=== PATIENT | female | born 1965 | race Caucasian/White ===

== ENCOUNTER 2018-04-22 15:10 | Emergency (ER) | payer MEDICAID ==
--- NOTE | 2018-04-22 15:43 | ER ---
Nurse's Notes [facility] Name: Tammie Schofield Age: 52 yrs Sex: Female : 1965 Arrival Date: 04/22/2018 Time: 15:13 Bed 28 Private MD: Diagnosis: Nasal congestion Presentation: 04/22 15:16 Presenting complaint: SOB and sinus congestion x 2 days. Denies cough/fever. Transition hb of care: patient was not received from another setting of care. Onset of symptoms was April 21, 2018. Risk Assessment: Do you want to hurt yourself or someone else?. Care prior to arrival: None. 15:16 Method Of Arrival: Ambulatory hb 15:16 Acuity: YUDY 3 hb 15:41 Initial Sepsis Screen: Does the patient meet any 2 criteria? No. Patient's initial ca1 sepsis screen is negative. Does the patient have a suspected source of infection? No. Patient's initial sepsis screen is negative. Triage Assessment: 15:43 Respiratory: Onset: The symptoms/episode began/occurred. 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 - Social history:: Smoking status: Patient/guardian denies using tobacco. - Ebola Screening: : No symptoms or risks identified at this time. Screenin:25 Abuse screen: Denies threats or abuse. Denies injuries from another. Nutritional ca1 screening: No deficits noted. Tuberculosis screening: No symptoms or risk factors identified. Fall Risk None identified. Assessment: 15:25 General:. General: Appears in no apparent distress. uncomfortable, Behavior is anxious, ca1 restless. Pain: Complains of pain in nose. Neuro: Level of Consciousness is awake, alert, obeys commands, Oriented to person, place, time, situation. Cardiovascular: Heart tones S1 S2 present Capillary refill < 3 seconds Patient's skin is warm and dry. Rhythm is sinus rhythm. Respiratory: Airway is patent Respiratory effort is even, unlabored, Respiratory pattern is regular, symmetrical, Breath sounds are clear bilaterally. GI: Abdomen is round non-distended, Bowel sounds present X 4 quads. Abd is soft and non tender X 4 quads. : No signs and/or symptoms were reported regarding the genitourinary system. EENT: Nares are clear. Derm: Skin is intact, is healthy with good turgor, Skin is pink, warm \T\ dry. Musculoskeletal: Circulation, motion, and sensation intact. Capillary refill < 3 seconds. 15:40 Reassessment: Patient appears in no apparent distress at this time. Patient is alert, ca1 oriented x 3, equal unlabored respirations, skin warm/dry/pink. Appeared calm. MERARI Cardenas at bedside. Vital Signs: 15:17 BP 138 / 88; Pulse 114; Resp 18; Temp 97.2(TE); Pulse Ox 100% on R/A; Pain 0/10; hb 15:40 BP 135 / 89; Pulse 110; Resp 19; Pulse Ox 100% on R/A; ca1 ED Course: 15:13 Patient arrived in ED. mr 15:17 Triage completed. hb 15:18 Arm band placed on. hb 15:23 Fiona Carreon RN is Primary Nurse. ca1 15:25 Patient has correct armband on for positive identification. Bed in low position. Call ca1 light in reach. Side rails up X 1. Pulse ox on. NIBP on. Warm blanket given. 15:28 Fred Henson PA is PHCP. Bridgette 15:28 Marcellus Arthur MD is Attending Physician. jr8 15:51 No provider procedures requiring assistance completed. Patient did not have IV access ca1 during this emergency room visit. Administered Medications: No medications were administered Outcome: 15:42 Discharge ordered by . jr8 15:51 Discharged to home ambulatory. ca1 15:51 Condition: stable 15:51 Discharge instructions given to patient, Instructed on discharge instructions, follow up and referral plans. medication usage, Demonstrated understanding of instructions, follow-up care, medications, Prescriptions given X 1. 15:51 Patient left the ED. ca1 Signatures: Nilda Perez Fred Henson PA PA jr8 Shannan Spear RN RN Fiona Carreon RN RN ca1 Corrections: (The following items were deleted from the chart) 15:41 15:25 General: Appears in no apparent distress. uncomfortable, Behavior is calm, ca1 cooperative, ca1
--- NOTE | 2018-04-22 15:43 | EDPHYS ---
Physician Documentation [facility] Name: Tammie Schofield Age: 52 yrs Sex: Female : 1965 Arrival Date: 04/22/2018 Time: 15:13 Bed 28 Private MD: ED Physician Marcellus Arthur HPI: 04/22 15:45 This 52 yrs old Female presents to ER via Ambulatory with complaints of Nasal jr8 Congestion . 15:45 The patient presents with Sinus congestion . Onset: The symptoms/episode began/occurred jr8 acutely, today. Modifying factors: The symptoms are alleviated by nothing. the symptoms are aggravated by nothing. Associated signs and symptoms: The patient has no apparent associated signs or symptoms. Severity of symptoms: At their worst the symptoms were mild in the emergency department the symptoms are unchanged. The patient has not experienced similar symptoms in the past. The patient has not recently seen a physician. "patient stated that she put a socket to her nose and then her mouth. Put it down and then another socket dropped onto that. Now she is having nasal congestion". Denies any other problems. . 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 - Social history:: Smoking status: Patient/guardian denies using tobacco. - Ebola Screening: : No symptoms or risks identified at this time. ROS: 15:45 Eyes: Negative for injury, pain, redness, and discharge, Neck: Negative for injury, jr8 pain, and swelling, Cardiovascular: Negative for chest pain, palpitations, and edema, Respiratory: Negative for shortness of breath, cough, wheezing, and pleuritic chest pain, Abdomen/GI: Negative for abdominal pain, nausea, vomiting, diarrhea, and constipation, Back: Negative for injury and pain, MS/Extremity: Negative for injury and deformity, Skin: Negative for injury, rash, and discoloration, Neuro: Negative for headache, weakness, numbness, tingling, and seizure. 15:45 ENT: Positive for sinus congestion, Negative for drainage from ear(s), ear pain, nasal discharge, sinus pain, sore throat, difficulty swallowing, difficulty handling secretions, hoarseness. Exam: 15:45 Eyes: Pupils equal round and reactive to light, extra-ocular motions intact. Lids and jr8 lashes normal. Conjunctiva and sclera are non-icteric and not injected. Cornea within normal limits. Periorbital areas with no swelling, redness, or edema. ENT: Mild bilateral tubinate swelling. Boggy in appearance. Without erythema or discharge. Tympanic membranes are normal and external auditory canals are clear. Oropharynx with no redness, swelling, or masses, exudates, or evidence of obstruction, uvula midline. Mucous membranes moist. Neck: Trachea midline, no thyromegaly or masses palpated, and no cervical lymphadenopathy. Supple, full range of motion without nuchal rigidity, or vertebral point tenderness. No Meningismus. Cardiovascular: Regular rate and rhythm with a normal S1 and S2. No gallops, murmurs, or rubs. Normal PMI, no JVD. No pulse deficits. Respiratory: Lungs have equal breath sounds bilaterally, clear to auscultation and percussion. No rales, rhonchi or wheezes noted. No increased work of breathing, no retractions or nasal flaring. Abdomen/GI: Soft, non-tender, with normal bowel sounds. No distension or tympany. No guarding or rebound. No evidence of tenderness throughout. Back: No spinal tenderness. No costovertebral tenderness. Full range of motion. Skin: Warm, dry with normal turgor. Normal color with no rashes, no lesions, and no evidence of cellulitis. MS/ Extremity: Pulses equal, no cyanosis. Neurovascular intact. Full, normal range of motion. Neuro: Awake and alert, GCS 15, oriented to person, place, time, and situation. Cranial nerves II-XII grossly intact. Motor strength 5/5 in all extremities. Sensory grossly intact. Cerebellar exam normal. Normal gait. 15:45 Psych: Behavior/mood is pleasant, cooperative, Affect is animated, Oriented to person, place, time, Patient has no thoughts/intents to harm self or others. Judgement / Insight is normal. Memory is normal. Delusions/hallucinations are present and described as seeing socket wrenches attacking each other . Vital Signs: 15:17 BP 138 / 88; Pulse 114; Resp 18; Temp 97.2(TE); Pulse Ox 100% on R/A; Pain 0/10; hb 15:40 BP 135 / 89; Pulse 110; Resp 19; Pulse Ox 100% on R/A; ca1 MDM: 15:28 Patient medically screened. jr8 15:42 Data reviewed: vital signs, nurses notes, and as a result, I will discharge patient. jr8 Data interpreted: Pulse oximetry: on room air is 100 %. Interpretation: normal. Counseling: I had a detailed discussion with the patient and/or guardian regarding: the historical points, exam findings, and any diagnostic results supporting the discharge/admit diagnosis, the need for outpatient follow up, a family practitioner, a psychiatrist. 15:45 ED course: Patient was questioned thoroughly about her Schizophrenic history. Patient jr8 pleasant. Alert and and answer all questions appropriately. No SI/HI thoughts. Was just concerned about her nasal congestion. Father is the one who apparently dropped her off and would pick her up. No apparent harm to herself or others. No acute psychosis present. Stable to go home . Administered Medications: No medications were administered Disposition: 04/23 06:35 Co-signature as Attending Physician, Marcellus Arthur MD I agree with the assessment and kdr plan of care. Disposition: 04/22/18 15:42 Discharged to Home. Impression: Nasal congestion. - Condition is Stable. - Discharge Instructions: Nasal Allergies. - Prescriptions for Nasonex 50 mcg/actuation Nasal spray,non- aerosol - spray 2 spray by INTRANASAL route once daily; 1 bottle. - Medication Reconciliation Form, Thank You Letter, Antibiotic Education, Prescription Opioid Use form. - Follow up: Private Physician; When: 2 - 3 days; Reason: Recheck today's complaints, Continuance of care, Re-evaluation by your physician. - Problem is new. - Symptoms have improved. Signatures: Marcellus Arthur MD MD kdr Roszak, Josh, PA PA jr8 Shannan Spear RN RN hb Fiona Carreon RN RN ca1 Corrections: (The following items were deleted from the chart) 04/22 15:51 15:42 04/22/2018 15:42 Discharged to Home. Impression: Nasal congestion. Condition is ca1 Stable. Forms are Medication Reconciliation Form, Thank You Letter, Antibiotic Education, Prescription Opioid Use. Follow up: Private Physician; When: 2 - 3 days; Reason: Recheck today's complaints, Continuance of care, Re-evaluation by your physician. Problem is new. Symptoms have improved. jr8
[2018-04-22 15:59] VITALS: TEMP 97.2; O2SAT 100
[2018-04-22 16:10] VITALS: BP 135/89
== END 2018-04-22 15:51 | disposition home or self-care (01) ==
LOC: ER 15:10
DX: R09.81 Nasal congestion (principal); F20.9 Schizophrenia, unspecified
CPT/HCPCS: 99284

== ENCOUNTER 2018-06-12 18:14 | Emergency (ER) | payer MEDICAID ==
--- NOTE | 2018-06-12 19:33 | EDPHYS ---
Physician Documentation [facility] Name: Tammie Schofield Age: 52 yrs Sex: Female : 1965 Arrival Date: 06/12/2018 Time: 18:15 Bed 24 Private MD: ED Physician Marcellus Arthur HPI: 06/12 19:31 This 52 yrs old Female presents to ER via Ambulatory with complaints of Flu pm1 Symptoms. 19:31 The patient or guardian reports cough, flu symptoms, arthralgias. Onset: The pm1 symptoms/episode began/occurred 3 day(s) ago. Severity of symptoms: in the emergency department the symptoms have improved. Modifying factors: The symptoms are alleviated by cough medications the symptoms are aggravated by nothing. Associated signs and symptoms: Pertinent positives: rhinorrhea, sore throat, fever that has resolved 1 day ago. Diarrhea x 1 that has resolved 1 day ago, Pertinent negatives: chest pain, nausea, vomiting. Historical: - Allergies: 18:18 NKDA; hj - PMHx: 18:18 Schizophrenia; hj - PSHx: 18:18 Adenoids; Tubal ligation; hj - Immunization history:: Adult Immunizations up to date. - Social history:: Smoking status: unknown. - Ebola Screening: : Patient negative for fever greater than or equal to 101.5 degrees Fahrenheit, and additional compatible Ebola Virus Disease symptoms Patient denies exposure to infectious person Patient denies travel to an Ebola-affected area in the 21 days before illness onset. ROS: 19:31 Eyes: Negative for injury, pain, redness, and discharge. pm1 19:31 Constitutional: Positive for body aches, Negative for poor PO intake. 19:31 Neck: Negative for injury, pain, and swelling, Cardiovascular: Negative for chest pain, pm1 palpitations, and edema. 19:31 Abdomen/GI: Negative for abdominal pain, nausea, vomiting, diarrhea, and constipation, Back: Negative for injury and pain, : Negative for injury, bleeding, discharge, and swelling, MS/Extremity: Negative for injury and deformity, Skin: Negative for injury, rash, and discoloration, Neuro: Negative for headache, weakness, numbness, tingling, and seizure. 19:31 ENT: Positive for rhinorrhea, sore throat, Negative for drainage from ear(s), ear pain. 19:31 Respiratory: Positive for cough, Negative for shortness of breath, sputum production, wheezing. Exam: 19:31 Constitutional: This is a well developed, well nourished patient who is awake, alert, pm1 and in no acute distress. Head/Face: Normocephalic, atraumatic. Eyes: Pupils equal round and reactive to light, extra-ocular motions intact. Lids and lashes normal. Conjunctiva and sclera are non-icteric and not injected. Cornea within normal limits. Periorbital areas with no swelling, redness, or edema. ENT: Nares patent. No nasal discharge, no septal abnormalities noted. Tympanic membranes are normal and external auditory canals are clear. Oropharynx with no redness, swelling, or masses, exudates, or evidence of obstruction, uvula midline. Mucous membranes moist. Neck: Trachea midline, no thyromegaly or masses palpated, and no cervical lymphadenopathy. Supple, full range of motion without nuchal rigidity, or vertebral point tenderness. No Meningismus. Chest/axilla: Normal chest wall appearance and motion. Nontender with no deformity. No lesions are appreciated. Cardiovascular: Regular rate and rhythm with a normal S1 and S2. No gallops, murmurs, or rubs. Normal PMI, no JVD. No pulse deficits. Respiratory: Lungs have equal breath sounds bilaterally, clear to auscultation and percussion. No rales, rhonchi or wheezes noted. No increased work of breathing, no retractions or nasal flaring. Abdomen/GI: Soft, non-tender, with normal bowel sounds. No distension or tympany. No guarding or rebound. No evidence of tenderness throughout. Back: No spinal tenderness. No costovertebral tenderness. Full range of motion. Skin: Warm, dry with normal turgor. Normal color with no rashes, no lesions, and no evidence of cellulitis. MS/ Extremity: Pulses equal, no cyanosis. Neurovascular intact. Full, normal range of motion. 19:31 Neuro: Orientation: is normal, Motor: is normal, moves all fours. Vital Signs: 18:18 BP 143 / 103; Pulse 103; Resp 18; Temp 98.0; Pulse Ox 97% on R/A; Weight 113.4 kg; hj Height 5 ft. 4 in. (162.56 cm); 19:44 BP 138 / 98; Pulse 95; Resp 18; Pulse Ox 98% ; rv 18:18 Body Mass Index 42.91 (113.40 kg, 162.56 cm) MDM: 18:28 Patient medically screened. pm1 19:31 Data reviewed: vital signs. Data interpreted: Pulse oximetry: on room air is 97 %. pm1 Interpretation: normal. Counseling: I had a detailed discussion with the patient and/or guardian regarding: the historical points, exam findings, and any diagnostic results supporting the discharge/admit diagnosis, lab results, the need for outpatient follow up, to return to the emergency department if symptoms worsen or persist or if there are any questions or concerns that arise at home. 06/12 18:27 Order name: Flu; Complete Time: 19:32 pm1 06/12 18:27 Order name: Strep; Complete Time: 19:32 pm1 06/12 18:56 Order name: Throat Culture EDMS Administered Medications: No medications were administered Disposition: 06/13 10:27 Co-signature as Attending Physician, Marcellus Arthur MD I agree with the assessment and kdr plan of care. Disposition: 06/12/18 19:32 Discharged to Home. Impression: Acute upper respiratory infection, unspecified. - Condition is Stable. - Discharge Instructions: Upper Respiratory Infection, Adult, Viral Respiratory Infection, Cool Mist Vaporizer. - Prescriptions for Tessalon Perles 100 mg Oral Capsule - take 1 capsule by ORAL route every 8 hours As needed; 15 capsule. - Medication Reconciliation Form, Thank You Letter, Antibiotic Education, Prescription Opioid Use form. - Follow up: Emergency Department; When: As needed; Reason: Worsening of condition. Follow up: Private Physician; When: 2 - 3 days; Reason: Recheck today's complaints, Continuance of care, Re-evaluation by your physician. - Problem is new. - Symptoms have improved. Signatures: Dispatcher [employer] EDMS Marcellus Arthur MD MD [facility] Panchito Martinez RN RN hj Marinas, Patrick, NP [employer]TON BRADDER pm1 Chuck Arroyo RN RN rv Corrections: (The following items were deleted from the chart) 06/12 19:44 19:32 06/12/2018 19:32 Discharged to Home. Impression: Acute upper respiratory rv infection, unspecified. Condition is Stable. Forms are Medication Reconciliation Form, Thank You Letter, Antibiotic Education, Prescription Opioid Use. Follow up: Emergency Department; When: As needed; Reason: Worsening of condition. Follow up: Private Physician; When: 2 - 3 days; Reason: Recheck today's complaints, Continuance of care, Re-evaluation by your physician. Problem is new. Symptoms have improved. pm1
--- NOTE | 2018-06-12 19:33 | ER ---
Nurse's Notes [facility] Name: Tammie Schofield Age: 52 yrs Sex: Female : 1965 Arrival Date: 06/12/2018 Time: 18:15 Bed 24 Private MD: Diagnosis: Acute upper respiratory infection, unspecified Presentation: 06/12 18:16 Presenting complaint: Patient states: i was running fever for 3 days, cough, diarrhea, hj body aches; took cough medicine today;. Transition of care: patient was not received from another setting of care. Onset of symptoms was June 12, 2018. Risk Assessment: Do you want to hurt yourself or someone else? Patient reports no desire to harm self or others. Initial Sepsis Screen: Does the patient meet any 2 criteria? No. Patient's initial sepsis screen is negative. Does the patient have a suspected source of infection? No. Patient's initial sepsis screen is negative. Care prior to arrival: None. 18:16 Method Of Arrival: Ambulatory 18:16 Acuity: YUDY 4 hj Historical: - Allergies: 18:18 NKDA; hj - PMHx: 18:18 Schizophrenia; hj - PSHx: 18:18 Adenoids; Tubal ligation; hj - Immunization history:: Adult Immunizations up to date. - Social history:: Smoking status: unknown. - Ebola Screening: : Patient negative for fever greater than or equal to 101.5 degrees Fahrenheit, and additional compatible Ebola Virus Disease symptoms Patient denies exposure to infectious person Patient denies travel to an Ebola-affected area in the 21 days before illness onset. Screenin:42 Abuse screen: Denies threats or abuse. Denies injuries from another. Nutritional rv screening: No deficits noted. Tuberculosis screening: No symptoms or risk factors identified. Fall Risk None identified. Assessment: 19:00 General: Appears in no apparent distress. comfortable, Behavior is calm, cooperative. rv 19:00 Pain: Denies pain. Neuro: Level of Consciousness is awake, alert, obeys commands, rv Oriented to person, place, time, situation. Cardiovascular: Capillary refill < 3 seconds. Respiratory: Airway is patent. GI: No signs and/or symptoms were reported involving the gastrointestinal system. : No signs and/or symptoms were reported regarding the genitourinary system. EENT: No signs and/or symptoms were reported regarding the EENT system. Derm: Skin is intact. Musculoskeletal: Vital Signs: 18:18 BP 143 / 103; Pulse 103; Resp 18; Temp 98.0; Pulse Ox 97% on R/A; Weight 113.4 kg; hj Height 5 ft. 4 in. (162.56 cm); 19:44 BP 138 / 98; Pulse 95; Resp 18; Pulse Ox 98% ; rv 18:18 Body Mass Index 42.91 (113.40 kg, 162.56 cm) ED Course: 18:15 Patient arrived in ED. mr 18:17 Corby Mosley NP is PHCP. pm1 18:17 Marcellus Arthur MD is Attending Physician. pm1 18:17 Triage completed. hj 18:19 Arm band placed on right wrist. hj 18:21 Chuck Arroyo, AMY is Primary Nurse. rv 19:00 Patient has correct armband on for positive identification. Bed in low position. Call rv light in reach. Side rails up X 1. 19:00 Pulse ox on. NIBP on. rv 19:43 No provider procedures requiring assistance completed. Patient did not have IV access rv during this emergency room visit. Administered Medications: No medications were administered Outcome: 19:32 Discharge ordered by MD. pm1 19:43 Discharged to home ambulatory. rv 19:43 Condition: good 19:43 Discharge instructions given to patient, Instructed on discharge instructions, follow up and referral plans. medication usage, Demonstrated understanding of instructions, follow-up care, medications, Prescriptions given X 1. 19:44 Patient left the ED. rv Signatures: Nilda Perez Panchito Martinez RN RN Corby Mosley, MARK ELECTROFORMER pm1 Chuck Arroyo, AMY RN rv Corrections: (The following items were deleted from the chart) 18:20 18:18 Pulse 103bpm; Resp 18bpm; Pulse Ox 97% RA; Temp 98.0F; 113.4 kg; Height 5 ft. 4 hj in.; BMI: 42.9; hj
[2018-06-12 20:06] VITALS: TEMP 98
[2018-06-12 20:07] VITALS: BP 138/98; O2SAT 98
== END 2018-06-12 19:44 | disposition home or self-care (01) ==
LOC: ER 18:14
DX: J06.9 Acute upper respiratory infection, unspecified (principal)
CPT/HCPCS: 87070; 87081; 87804; 99283

== ENCOUNTER 2018-10-28 13:18 | Emergency (ER) | payer MEDICAID ==
--- NOTE | 2018-10-28 13:59 | ER ---
Nurse's Notes [facility] Name: Tammie Schofield Age: 53 yrs Sex: Female : 1965 Arrival Date: 10/28/2018 Time: 13:22 Bed 13 Private MD: Diagnosis: Periapical abscess without sinus Presentation: 10/28 13:23 Presenting complaint: Patient states: i have a hole in my tooth on my right upper jaw, tw2 it hurts when i swallow and my gums and jaws are swollen. Transition of care: patient was not received from another setting of care. Onset of symptoms was October 28, 2018. Risk Assessment: Do you want to hurt yourself or someone else? Patient reports no desire to harm self or others. Initial Sepsis Screen: Does the patient meet any 2 criteria? HR > 90 bpm. Does the patient have a suspected source of infection? Yes: Other: dental. Care prior to arrival: None. 13:23 Method Of Arrival: Ambulatory tw2 13:23 Acuity: YUDY 3 tw2 Triage Assessment: 13:26 General: Appears uncomfortable, obese, Behavior is calm, cooperative, appropriate for tw2 age. Pain: Complains of pain in left buccal mucosa. EENT: Reports pain in left buccal mucosa when swallowing. 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 - Social history:: Smoking status: . - Ebola Screening: : Patient denies travel to an Ebola-affected area in the 21 days before illness onset. Screenin:15 Abuse screen: Denies threats or abuse. Denies injuries from another. Nutritional mg2 screening: No deficits noted. Tuberculosis screening: No symptoms or risk factors identified. Fall Risk None identified. Assessment: 13:38 Reassessment: pt drinking coffee at this time, pt instructed to not drink coffee at tw2 this time until seen by a physician. 14:12 General: Appears in no apparent distress. comfortable, Behavior is calm, cooperative. mg2 Pain: Complains of pain in tooth Pain does not radiate. Pain currently is 5 out of 10 on a pain scale. Quality of pain is described as aching, Pain began gradually, Is intermittent. Neuro: Level of Consciousness is awake, alert, obeys commands, Oriented to person, place, time, situation. Cardiovascular: Capillary refill < 3 seconds Patient's skin is warm and dry. Respiratory: Airway is patent Respiratory effort is even, unlabored, Respiratory pattern is regular, symmetrical. GI: No signs and/or symptoms were reported involving the gastrointestinal system. : No signs and/or symptoms were reported regarding the genitourinary system. EENT: tooth abscess. Derm: Skin is intact, is healthy with good turgor, Skin is pink, warm \T\ dry. normal. Musculoskeletal: Circulation, motion, and sensation intact. Capillary refill < 3 seconds. Vital Signs: 13:24 BP 160 / 97; Pulse 103; Resp 18; Temp 98.3(O); Pulse Ox 96% ; Weight 114.31 kg (R); tw2 Height 5 ft. 4 in. (162.56 cm); Pain 10/10; 14:35 BP 145 / 78; Pulse 98; Resp 18; Temp 98; Pulse Ox 100% on R/A; mg2 13:24 Body Mass Index 43.26 (114.31 kg, 162.56 cm) tw2 ED Course: 13:22 Patient arrived in ED. mr 13:24 Triage completed. tw2 13:24 Arm band placed on. tw2 13:43 Corby Mosley NP is PHCP. pm1 13:43 Alfred Diana MD is Attending Physician. pm1 13:44 Mark Tidwell RN is Primary Nurse. mg2 14:15 Patient has correct armband on for positive identification. Pulse ox on. NIBP on. Door mg2 closed. 14:15 No provider procedures requiring assistance completed. Patient did not have IV access mg2 during this emergency room visit. Administered Medications: 14:07 Drug: Clindamycin 600 mg Route: IM; Site: right gluteus; mg2 14:34 Follow up: Response: No adverse reaction mg2 14:07 Drug: [place] 10 mg-325 mg 1 tabs Route: PO; mg2 14:34 Follow up: Response: No adverse reaction mg2 14:34 Follow up: Response: RASS: Alert and Calm (0) mg2 Outcome: 13:58 Discharge ordered by . pm1 14:35 Discharged to home ambulatory. mg2 14:35 Condition: stable 14:35 Discharge instructions given to patient, Instructed on discharge instructions, follow up and referral plans. medication usage, Demonstrated understanding of instructions, follow-up care, medications, Prescriptions given X 2. 14:35 Patient left the ED. mg2 Signatures: Nilda Perez mr MosleyCorby, MARK CANDY SEPARATOR ENROBING pm1 Brisa Cortez RN RN tw2 Mark Tidwell RN RN mg2
--- NOTE | 2018-10-28 13:59 | EDPHYS ---
Physician Documentation [facility] Name: Tammie Schofield Age: 53 yrs Sex: Female : 1965 Arrival Date: 10/28/2018 Time: 13:22 Bed 13 Private MD: ED Physician Alfred Diana HPI: 10/28 14:00 This 53 yrs old Female presents to ER via Ambulatory with complaints of pm1 Toothache. 14:00 The patient presents with pain, swelling. The problem is located in the upper left pm1 second molar. Onset: The symptoms/episode began/occurred 2 day(s) ago. Duration: The symptoms are continuous. Modifying factors: the symptoms are aggravated by food. Associated signs and symptoms: Pertinent negatives: dysphagia, fever, inability to eat, pain. Severity of symptoms: in the emergency department the symptoms have improved, swollen gum area popped and drained yesterday. The patient has experienced similar episodes in the past, a few times. The patient has not recently seen a physician. 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 - Social history:: Smoking status: . - Ebola Screening: : Patient denies travel to an Ebola-affected area in the 21 days before illness onset. ROS: 14:00 Constitutional: Negative for fever, chills, and weight loss, Eyes: Negative for injury, pm1 pain, redness, and discharge. 14:00 Neck: Negative for injury, pain, and swelling, Cardiovascular: Negative for chest pain, palpitations, and edema, Respiratory: Negative for shortness of breath, cough, wheezing, and pleuritic chest pain, Abdomen/GI: Negative for abdominal pain, nausea, vomiting, diarrhea, and constipation, Back: Negative for injury and pain, MS/Extremity: Negative for injury and deformity, Skin: Negative for injury, rash, and discoloration, Neuro: Negative for headache, weakness, numbness, tingling, and seizure. 14:00 ENT: Positive for dental pain, Negative for drainage from ear(s), ear pain, difficulty swallowing, difficulty handling secretions, hoarseness. Exam: 14:00 Constitutional: This is a well developed, well nourished patient who is awake, alert, pm1 and in no acute distress. Head/Face: Normocephalic, atraumatic. Eyes: Pupils equal round and reactive to light, extra-ocular motions intact. Lids and lashes normal. Conjunctiva and sclera are non-icteric and not injected. Cornea within normal limits. Periorbital areas with no swelling, redness, or edema. Neck: Trachea midline, no thyromegaly or masses palpated, and no cervical lymphadenopathy. Supple, full range of motion without nuchal rigidity, or vertebral point tenderness. No Meningismus. Chest/axilla: Normal chest wall appearance and motion. Nontender with no deformity. No lesions are appreciated. Cardiovascular: Regular rate and rhythm with a normal S1 and S2. No gallops, murmurs, or rubs. Normal PMI, no JVD. No pulse deficits. Respiratory: Lungs have equal breath sounds bilaterally, clear to auscultation and percussion. No rales, rhonchi or wheezes noted. No increased work of breathing, no retractions or nasal flaring. Abdomen/GI: Soft, non-tender, with normal bowel sounds. No distension or tympany. No guarding or rebound. No evidence of tenderness throughout. Back: No spinal tenderness. No costovertebral tenderness. Full range of motion. 14:00 Skin: Warm, dry with normal turgor. Normal color with no rashes, no lesions, and no evidence of cellulitis. MS/ Extremity: Pulses equal, no cyanosis. Neurovascular intact. Full, normal range of motion. 14:00 ENT: External ear(s): are unremarkable, Ear canal(s): are normal, Nose: is normal, Mouth: Lips: normal, Oral mucosa: normal, Gums: normal with healthy appearance, Tongue: is normal, no trismus. floor of mouth under tongue soft and nontender. 14:00 Neuro: Orientation: is normal, Motor: is normal, moves all fours, Sensation: is normal, no obvious gross deficits. Vital Signs: 13:24 BP 160 / 97; Pulse 103; Resp 18; Temp 98.3(O); Pulse Ox 96% ; Weight 114.31 kg (R); tw2 Height 5 ft. 4 in. (162.56 cm); Pain 10/10; 14:35 BP 145 / 78; Pulse 98; Resp 18; Temp 98; Pulse Ox 100% on R/A; mg2 13:24 Body Mass Index 43.26 (114.31 kg, 162.56 cm) tw2 MDM: 13:43 Patient medically screened. pm1 13:57 Data reviewed: vital signs. Data interpreted: Pulse oximetry: on room air is 96 %. pm1 Interpretation: normal. Counseling: I had a detailed discussion with the patient and/or guardian regarding: the historical points, exam findings, and any diagnostic results supporting the discharge/admit diagnosis, the need for outpatient follow up, for definitive care, a dentist, to return to the emergency department if symptoms worsen or persist or if there are any questions or concerns that arise at home. Administered Medications: 14:07 Drug: Clindamycin 600 mg Route: IM; Site: right gluteus; mg2 14:34 Follow up: Response: No adverse reaction mg2 14:07 Drug: [place] 10 mg-325 mg 1 tabs Route: PO; mg2 14:34 Follow up: Response: No adverse reaction mg2 14:34 Follow up: Response: RASS: Alert and Calm (0) mg2 Disposition: 15:45 Co-signature as Attending Physician, Alfred Diana MD I agree with the assessment and rn plan of care. Disposition: 10/28/18 13:58 Discharged to Home. Impression: Periapical abscess without sinus. - Condition is Stable. - Discharge Instructions: Dental Abscess, Dental Pain. - Prescriptions for Tylenol- Codeine #3 300-30 mg Oral Tablet - take 2 tablets by ORAL route every 6 hours As needed; 20 tablet. Clindamycin HCl 300 mg Oral Capsule - take 1 capsule by ORAL route every 6 hours for 10 days; 40 capsule. - Medication Reconciliation Form, Thank You Letter, Antibiotic Education, Prescription Opioid Use form. - Follow up: Emergency Department; When: As needed; Reason: Worsening of condition. Follow up: Private Physician; When: 2 - 3 days; Reason: Recheck today's complaints, Continuance of care, Re-evaluation by your physician. - Problem is new. - Symptoms have improved. Signatures: Alfred Diana MD MD rn Marinas, Patrick, NP BOX LOADER pm1 Brisa Cortez, RN RN tw2 Mark Tidwell, RN RN mg2 Corrections: (The following items were deleted from the chart) 14:35 13:58 10/28/2018 13:58 Discharged to Home. Impression: Periapical abscess without mg2 sinus. Condition is Stable. Forms are Medication Reconciliation Form, Thank You Letter, Antibiotic Education, Prescription Opioid Use. Follow up: Emergency Department; When: As needed; Reason: Worsening of condition. Follow up: Private Physician; When: 2 - 3 days; Reason: Recheck today's complaints, Continuance of care, Re-evaluation by your physician. Problem is new. Symptoms have improved. pm1
[2018-10-28] MEDS ORDERED: HYDROCODONE/APAP 10/325 TAB ONE (14:04)
[2018-10-28] MEDS ORDERED: CLINDAMYCIN IV 150 MG/ML (4 mL) VIAL ONE (14:04)
[2018-10-28 14:56] VITALS: BP 145/78; TEMP 98; O2SAT 100
== END 2018-10-28 14:35 | disposition home or self-care (01) ==
LOC: ER 13:18
DX: K04.7 Periapical abscess without sinus (principal); F20.9 Schizophrenia, unspecified
CPT/HCPCS: 96372; 99283; S0077

== ENCOUNTER 2019-08-17 21:11 | Emergency (ER) | payer MEDICAID ==
--- NOTE | 2019-08-18 10:31 | ER ---
Nurse's Notes [facility] Name: Tammie Schofield Age: 53 yrs Sex: Female : 1965 Arrival Date: 08/17/2019 Time: 21:14 Bed Waiting Private MD: Diagnosis: Presentation: 08/16 21:20 Chief complaint: Patient states: There was a sore on my L leg started about a week ago. ca1 Right now it looks infected, red, swollen and having some drainage. Coronavirus screen: Proceed with normal triage. Patient denies a cough. Patient denies shortness of breath or difficulty breathing. Patient denies measured and/or subjective temperature greater than 100.4F prior to today's visit. Patient denies travel on a cruise ship or to a country the [facility] currently lists as an affected area. Patient denies contact with known and/or suspected case of COVID-19. Ebola Screen: Patient negative for fever greater than or equal to 101.5 degrees Fahrenheit, and additional compatible Ebola Virus Disease symptoms Patient denies exposure to infectious person. Patient denies travel to an Ebola-affected area in the 21 days before illness onset. No symptoms or risks identified at this time. Initial Sepsis Screen: Does the patient meet any 2 criteria? No. Patient's initial sepsis screen is negative. Does the patient have a suspected source of infection? No. Patient's initial sepsis screen is negative. Risk Assessment: Do you want to hurt yourself or someone else? Patient reports no desire to harm self or others. Onset of symptoms was August 17, 2019. 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 - Social history:: Smoking status: Patient reports use of chewing tobacco. Vital Signs: 21:20 BP 144 / 102; Pulse 104; Resp 17 S; Temp 97.2(TE); Pulse Ox 99% on R/A; Weight 114.31 ca1 kg (R); Height 5 ft. 4 in. (162.56 cm) (R); Pain 09/02; 21:20 Body Mass Index 43.26 (114.31 kg, 162.56 cm) ca1 ED Course: 21:14 Patient arrived in ED. ag3 21: Triage completed. ca1 21:25 Arm band placed on right wrist. ca1 23:51 Matthew Bruno MD is Attending Physician. flor 08/17 00:11 Patient's name was called from ER lobby. Unable to locate patient. Will disposition as ea left without being seen by a provider. Administered Medications: No medications were administered Outcome: 00:13 Patient left the ED. ea Signatures: Matthew Bruno MD MD cha Antunez, Elena, AMY RN Nicolette Durand 3 Fiona Carreon RN RN ca1 Corrections: (The following items were deleted from the chart) 08/16 21:25 21:20 Acuity: YUDY 4 ca1 ca1
[2019-08-18 13:50] VITALS: BP 144/102; TEMP 97.2; O2SAT 99
== END 2019-08-18 00:13 | disposition left against medical advice (07) ==
LOC: ER 21:11
DX: Z53.21 Procedure and treatment not carried out due to patient leaving prior to being seen by health care provider (principal)
CPT/HCPCS: 99281

== ENCOUNTER 2021-10-16 19:50 | Emergency (ER) | payer OTHER ==
--- OUTSIDE RECORDS SUMMARY | 2021-10-16 19:53 | XMS REPORT | Continuity of Care Document ---
:1965 Author Organization [facility] t Address [address] [place] [address] Care Team Providers Name Role Phone Unavailable Unavailable Unavailable Problems This patient has no known problems. Allergies, Adverse Reactions, Alerts This patient has no known allergies or adverse reactions. Medications This patient has no known medications. Procedures This patient has no known procedures. Results Test Description Test Time Test Comments Results Result Comments Source C-REACTIVE PROTEIN 2021-04-11 06:24:06 Test Item Value Reference Range Interpretation Comme nts C-REACTIVE PROTEIN (test code = 0.4 MG/DL <0.5 UNLESS OTHERWISE INDICATED, ALL 3513) TESTING PERFORM ED ATCLINICAL PATHOLOGY [employer]. [address] [place] [id number] SONOSCOPE OPERATOR: MASHA OLSEN M.D. CLIA NUMBER [id number] CAP ACCREDITATION N O. [id number] SEDIMENTATION [id number] 06:06:25 Test Item Value Reference Range Interpretation Comments SEDIMENTATION RATE (test code = 17 MM/HOUR 0-20 1017) CBC W/AUTO DIFF WITH [id number] 04:52:45 Test Item Value Reference Range Interpretation Comments WBC (test code = 6.7 K/UL 3.5-11.0 1001) RBC (test code = 4.67 M/UL 3.80-5.40 1002) HEMOGLOBIN (test code 14.3 G/DL 11.5-15.5 = 1003) HEMATOCRIT (test code 42.2 % 34.0-45.0 = 1004) MCV (test code = 90.4 fL 80.0-99.0 1005) MCH (test code = 30.6 PG 25.0-33.0 1006) MCHC (test code = 33.9 G/DL 31.0-36.0 1007) RDW (test code = 12.6 % 11.5-15.0 1038) NEUTROPHILS (test 45.2 % code = 1008) LYMPHOCYTES (test 46.6 % code = 1010) MONOCYTES (test code 6.0 % = 1011) EOSINOPHILS (test 1.0 % code = 1012) BASOPHILS (test code 0.9 % = 1013) IMMATURE GRANULOCYTES 0.3 % (test code = 1036) NUCLEATED RBCS (test 0.0 /100 WBC'S See_Comment [Aut omated code = 1065) message] The sy stem which generated this result transmitted reference range : 0.0. The refere nce range was not u sed to interpret th is result as normal/abnormal . PLATELET COUNT (test 258 K/UL 130-400 code = 1015) ABSOLUTE NEUTROPHILS 3.03 K/UL 1.50-7.50 (test code = 1066) ABSOLUTE LYMPHOCYTES 3.12 K/UL 1.00-4.00 (test code = 1067) ABSOLUTE MONOCYTES 0.40 K/UL 0.20-1.00 (test code = 1068) ABSOLUTE EOSINOPHILS 0.07 K/UL 0.00-0.50 (test code = 1040) ABSOLUTE BASOPHILS 0.06 K/UL 0.00-0.20 (test code = 1069) ABS IMMATURE 0.02 K/UL 0.00-0.10 GRANULOCYTES (test code = 1020) ABS NUCLEATED RBCS 0.00 K/UL 0.00-0.11 (test code = 34718)
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
--- NOTE | 2021-10-16 20:45 | EDPHYS ---
Physician Documentation [facility] Name: Tammie Schofield Age: 56 yrs Sex: Female : 1965 Arrival Date: 10/16/2021 Time: 19:52 Bed 17 Private MD: CARLOS Physician Matthew Bruno HPI: 10/16 21:01 This 56 yrs old Female presents to ER via Ambulatory with complaints of Sore Throat, snw Cough, Hurts to breathe. 21:01 The patient presents with sore throat. The patient describes throat pain as scratchy. snw Severity of symptoms: At their worst the symptoms were moderate. Associated signs and symptoms: Pertinent positives: cough, flu-like symptoms, Sore throat. The patient has not experienced similar symptoms in the past. It is unknown whether or not the patient has recently seen a physician. 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 - Social history:: Smoking status: Patient reports use of chewing tobacco. ROS: 20:50 Eyes: Negative for injury, pain, redness, and discharge. snw 20:50 Neck: Negative for injury, pain, and swelling, Cardiovascular: Negative for chest pain, palpitations, and edema, Respiratory: Negative for shortness of breath and pleuritic chest pain, + cough, wheezing Abdomen/GI: Negative for abdominal pain, nausea, vomiting, diarrhea, and constipation, Back: Negative for injury and pain, : Negative for injury, bleeding, discharge, and swelling, MS/Extremity: Negative for injury and deformity, Skin: Negative for injury, rash, and discoloration, Neuro: Negative for headache, weakness, numbness, tingling, and seizure, Psych: Negative for depression, anxiety, suicide ideation, homicidal ideation, and hallucinations. 20:50 Constitutional: Positive for body aches, malaise. 20:50 ENT: Positive for nasal discharge, sinus congestion, sore throat. Exam: 20:48 Head/Face: Normocephalic, atraumatic. Eyes: Pupils equal round and reactive to light, snw extra-ocular motions intact. Lids and lashes normal. Conjunctiva and sclera are non-icteric and not injected. Cornea within normal limits. Periorbital areas with no swelling, redness, or edema. ENT: Nares patent. No nasal discharge, no septal abnormalities noted. Tympanic membranes are normal and external auditory canals are clear. Oropharynx with no redness, swelling, or masses, exudates, or evidence of obstruction, uvula midline. Mucous membranes moist. Neck: Trachea midline, no thyromegaly or masses palpated, and no cervical lymphadenopathy. Supple, full range of motion without nuchal rigidity, or vertebral point tenderness. No Meningismus. Chest/axilla: Normal chest wall appearance and motion. Nontender with no deformity. No lesions are appreciated. 20:48 Abdomen/GI: Soft, non-tender, with normal bowel sounds. No distension or tympany. No guarding or rebound. No evidence of tenderness throughout. Back: No spinal tenderness. No costovertebral tenderness. Full range of motion. Skin: Warm, dry with normal turgor. Normal color with no rashes, no lesions, and no evidence of cellulitis. MS/ Extremity: Pulses equal, no cyanosis. Neurovascular intact. Full, normal range of motion. Neuro: Awake and alert, GCS 15, oriented to person, place, time, and situation. Cranial nerves II-XII grossly intact. Motor strength 5/5 in all extremities. Sensory grossly intact. Cerebellar exam normal. Normal gait. Psych: Awake, alert, with orientation to person, place and time. Behavior, mood, and affect are within normal limits. 20:48 Constitutional: The patient appears alert, awake, obese. 20:48 Cardiovascular: Rate: tachycardic, Rhythm: regular, Pulses: no pulse deficits are appreciated. 20:48 Respiratory: the patient does not display signs of respiratory distress, Respirations: normal, Breath sounds: wheezing: expiratory is heard diffusely. Vital Signs: 20:10 BP 142 / 92; Pulse 113; Resp 16; Temp 97.7; Pulse Ox 95% on R/A; Weight 136.08 kg; 5 Height 5 ft. 4 in. (162.56 cm); Pain 4/10; 20:59 BP 137 / 84; Pulse 92; Resp 17 S; Pulse Ox 97% on R/A; em6 20:10 Body Mass Index 51.49 (136.08 kg, 162.56 cm) [facility] MDM: 20:38 Patient medically screened. snw 20:49 Data reviewed: vital signs, nurses notes. Data interpreted: Pulse oximetry: on room air snw is 95 %. Interpretation: acceptable. Counseling: I had a detailed discussion with the patient and/or guardian regarding: the historical points, exam findings, and any diagnostic results supporting the discharge/admit diagnosis, the presence of at least one elevated blood pressure reading (>120/80) during this emergency department visit, lab results, the need for outpatient follow up, to return to the emergency department if symptoms worsen or persist or if there are any questions or concerns that arise at home. Special discussion: Based on the history and exam findings, there is no indication for further emergent testing or inpatient evaluation. I discussed with the patient/guardian the need to see the primary care provider for further evaluation of the symptoms. 10/16 20:15 Order name: COVID-19 SARS RT PCR (Document "Date of Onset" if Symptomatic) [facility] 10/16 20:15 Order name: Flu; Complete Time: 20:58 [facility] 10/16 20:15 Order name: Strep; Complete Time: 20:43 [facility] 10/16 20:43 Order name: Throat Culture EDMS Administered Medications: 20:58 Drug: Decadron - Dexamethasone 10 mg Route: IVP; Site: Other; em6 20:59 Follow up: Response: No adverse reaction em6 20:59 Drug: Bicillin L-A (penicillin G Benzathine) 1.2 million units Route: IM; Site: right em6 gluteus; 20:59 Follow up: Response: No adverse reaction em6 Disposition Summary: 10/16/21 20:45 Discharge Ordered Location: Home snw Condition: Stable snw Diagnosis - Acute suppurative otitis media snw - Acute bronchitis, unspecified snw Followup: snw - With: Emergency Department - When: As needed - Reason: Worsening of condition Followup: snw - With: Private Physician - When: 2 - 3 days - Reason: Recheck today's complaints, Continuance of care, Re-evaluation by your physician Discharge Instructions: - Discharge Summary Sheet snw - Acute Bronchitis, Adult snw - Hypertension, Adult snw - Rehydration, Adult snw Forms: - Medication Reconciliation Form snw - Thank You Letter snw - Antibiotic Education snw - Prescription Opioid Use snw Prescriptions: - albuterol sulfate 90 mcg/actuation Inhalation HFA aerosol inhaler - inhale 2 puff by INHALATION route every 4-6 hours; 1 Inhaler; Refills: 0, snw Product Selection Permitted - Zyrtec 10 mg Oral Tablet - take 1 tablet by ORAL route once daily As needed; 20 tablet; Refills: 0, snw Product Selection Permitted - Pepcid 20 mg Oral Tablet - take 1 tablet by ORAL route once daily; 20 tablet; Refills: 0, Product snw Selection Permitted Signatures: Dispatcher [employer] EDKenzie Rowell FNP-C WAREHOUSE COORDINATOR-Surjitw Lucina Hall RN RN jh5 Olimpia Duran RN RN em6
[2021-10-16] MEDS ORDERED: dexAMETHasone 10 MG/ML VIAL ONE (20:56)
[2021-10-16] MEDS ORDERED: PEN G BENZ LA 1.2MU/2ML SYRINGE IM ONE (20:57)
[2021-10-16 23:38] VITALS: TEMP 97.7
[2021-10-16 23:41] VITALS: BP 137/84; O2SAT 97
== END 2021-10-16 21:02 | disposition home or self-care (01) ==
LOC: ER 19:50
DX: J20.9 Acute bronchitis, unspecified (principal); H66.009 Acute suppurative otitis media without spontaneous rupture of ear drum, unspecified ear; F17.220 Nicotine dependence, chewing tobacco, uncomplicated; Z20.822 Contact with and (suspected) exposure to COVID-19
CPT/HCPCS: 87070; 87081; 87804 ×2; U0003; J0561; J1100

== ENCOUNTER 2024-06-01 14:47 | Emergency (ER) | payer OTHER ==
--- OUTSIDE RECORDS SUMMARY | 2024-06-01 14:54 | XMS REPORT | Continuity of Care Document ---
Author Name Unknown Address [address] [facility] [address] [place] [address] [facility] [address] [facility] [address] [place] [address] Care Team Providers Care Construction Skills Teacher Name Role Phone Mj FAGAN, [facility] Primary Care Physician [phone] Medications Ordered Medication Name Filled Medication Name Start Date Stop Date Current Medication? Ordering Clinician Indication Dosage Frequency Signature (SIG) Comments Components Source fluticasone propionate 110 mcg/actuati on HFA aerosol inhaler 2023-02 00:00: 00 Yes 2mcg/ac tuation Oseas Gonsalves Ulises ProAir RespiClick 90 mcg/actuati on breath activated 2023-02 00:00: 00 Yes 12mcg/a ctuatio n Oseas Montgomery nystatin 100,000 unit/gram topical ointment 07-21 00:00: 00 Yes 1unit/g pita Oseas Montgomery fluticasone propionate 110 mcg/actuati on HFA aerosol inhaler 07-15 00:00: 00 Yes 2mcg/ac tuation Oseas Montgomery ProAir RespiClick 90 mcg/actuati on breath activated 07-15 00:00: 00 Yes 12mcg/a ctuatio n Oseas Montgomery RISPERDAL 50MG/2ML VIA 2022-02 2- 00:00: 00 Yes [id number] Oseas Montgomery RISPERDAL 50MG/2ML VIA 2022-02 1- 00:00: 00 Yes Oseas Montgomery BENZTROPINE 1MG 2022-02 1-07 00:00: 00 Yes Oseas Montgomery RISPERIDONE 3MG 2022-0 8-19 00:00: 00 Yes 3000 Oseas Montgomery RISPERIDONE 3MG 2023-0 7-24 00:00: 00 Yes 3000 Oseas Montgomery TAKE THREE TABLETS BY MOUTH DAILY WITH FOOD. 7- 00:00: 00 07-08 00:00 :00 No [id number] Oseas Montgomery RISPERIDONE 3MG 6-27 00:00: 00 Yes Oseas Montgomery MAVYRET 100-40MG 6-12 00:00: 00 Yes Oseas Montgomery CEPHALEXIN 500MG - 00:00: 00 Yes Oseas Montgomery TAKE ONE TABLET EVERY 6 HOURS FOR 14 DAYS - 00:00: 00 07-08 00:00 :00 No 500 Oseas Montgomery APPLY 2-3 TIMES DAILY TO AFFECTED AREA(S). 06-26 00:00: 00 07-08 00:00 :00 No [id number] Oseas Montgomery MAVYRET 100-40MG 06-24 00:00: 00 Yes Oseas [facility] TAKE 3 TABLETS DAILY WITH FOOD. 06-23 00:00: 00 07-08 00:00 :00 No [id number] Ose[facility] Montgomery TAKE 1 TABLET BY MOUTH EVERYDAY AT BEDTIME 06-13 00:00: 00 Yes Ose[facility] TAKE 1 TABLET AT BEDTIME FOR 1 WEEK. INCREASE TO 2 TABLETS AT BEDTIME FOR 1 WEEK. INCREASE TO 3 TABLETS AT BEDTIME UNTIL GONE. 05-22 00:00: 00 07-08 00:00 :00 No 100 Ose[facility] Montgomery PALIPERIDON E ER 9MG 3-09 00:00: 00 Yes Oseas Montgomery INVEGA SUST 156MG/ML INJ 3-08 00:00: 00 Yes [id number] Ose[facility] Montgomery TAKE 1 TABLET BY MOUTH TWICE A DAY - 00:00: 00 Yes [facility]se[facility] TAKE 1 TABLET TWICE DAILY. - 00:00: 00 07-08 00:00 :00 No [id number] Oseas Montgomery INVEGA SUST 234/1.5 INJ 1-25 00:00: 00 Yes Oseas Montgomery INVEGA SUST 156MG/ML INJ 2022-1 1-11 00:00: 00 Yes Oseas Montgomery METFORMIN ER 500MG GP 2021-0 9-29 00:00: 00 Yes [id number] Oseas Montgomery TAKE 1 TABLET TWICE A DAY 2021-0 9- 00:00: 00 Yes Ose[facility] RISPERDAL CONSTA 50MG/2ML VIA 0 9- 00:00: 00 Yes Ose[facility] RISPERDAL CONSTA 50MG/2ML VIA 0 9- 00:00: 00 No BENZTROPINE MESYLATE 1MG 0 9- 00:00: 00 Yes 1000 Ose[facility] Montgomery ESCITALOPRA M OXALATE 10MG 0 9- 00:00: 00 Yes [id number] Oseas Montgomery TAKE 1 TABLET BY MOUTH EVERY DAY IN THE MORNING 0 9- 00:00: 00 Yes Oseas Montgomery TAKE 1 TABLET BY MOUTH EVERYDAY AT BEDTIME 2021-0 9- 00:00: 00 Yes Oseas Montgomery FAMOTIDINE 20MG 2021-0 8-24 00:00: 00 Yes [id number] Oseas Montgomery CETIRIZINE HYDROCHLORI DE 10MG 0 8-24 00:00: 00 Yes [id number] Oseas Montgomery TAKE 1 TABLET BY MOUTH ONCE DAILY NEEDED FOR ALLERGY CONTROL 0 8-23 00:00: 00 Yes Ose[facility] Montgomery INVEGA SUSTENNA 156MG/ML INJ 2021-0 6-30 00:00: 00 Yes [id number] Oseas Montgomery INVEGA SUSTENNA 156MG/ML INJ 0 6-02 00:00: 00 Yes [id number] Oseas Montgomery Dose Unknown 0 2-14 00:00: 00 Yes Ose[facility] Montgomery Dose Unknown 0 2-14 00:00: 00 No Dose Unknown 2019-02 0-02 00:00: 00 Yes Ose[facility] Dose Unknown 2019-02 0-02 00:00: 00 Yes Oseas Montgomery Dose Unknown 2019-02 0-02 00:00: 00 No Dose Unknown 2019-02 0-02 00:00: 00 No Dose Unknown 2019-0 4-22 00:00: 00 Yes Ose[facility] Dose Unknown 0 4-22 00:00: 00 No Dose Unknown 0 4-20 00:00: 00 Yes Ose[facility] Dose Unknown 06-13 00:00: 00 No Dose Unknown 2018-02 00:00: 00 Yes [facility]se[facility] Dose Unknown 2018-02 00:00: 00 Yes Ose[facility] Dose Unknown 2018-02 00:00: 00 No Dose Unknown 2018-02 00:00: 00 No Flovent HFA 110 mcg/actuati on aerosol inhaler 06-19 00:00: 00 Yes 2mcg/ac tuation Oseas Montgomery albuterol sulfate HFA 90 mcg/actuati on aerosol inhaler 06-19 00:00: 00 Yes 12mcg/a ctuatio n Ose[facility] Montgomery Dose Unknown 06-19 00:00: 00 Yes Ose[facility] Flovent HFA 110 mcg/actuati on aerosol inhaler 06-19 00:00: 00 No 2mcg/ac tuation albuterol sulfate HFA 90 mcg/actuati on aerosol inhaler 06-19 00:00: 00 No 12mcg/a ctuatio n Dose Unknown 06-19 00:00: 00 No Flovent HFA 110 mcg/actuati on aerosol inhaler 03-09 00:00: 00 Yes 2mcg/ac tuation Osesa Montgomery albuterol sulfate HFA 90 mcg/actuati on aerosol inhaler 03-09 00:00: 00 Yes 12mcg/a ctuatio n Oseas Montgomery Flovent HFA 110 mcg/actuati on aerosol inhaler 03-09 00:00: 00 No 2mcg/ac tuation albuterol sulfate HFA 90 mcg/actuati on aerosol inhaler 03-09 00:00: 00 No 12mcg/a ctuatio n metronidazo le 500 mg tablet 11-19 00:00: 00 Yes 1mg Oseas Montgomery metronidazo le 500 mg tablet 11-19 00:00: 00 No 1mg clotrimazol e 1 % topical cream 11-17 00:00: 00 Yes 1% Oseas Montgomery clotrimazol e 1 % topical cream 11-17 00:00: 00 No 1% ibuprofen 600 mg tablet 10-30 00:00: 00 Yes 1mg Oseas Montgomery ibuprofen 600 mg tablet 10-30 00:00: 00 No 1mg metronidazo le 500 mg tablet 10-27 00:00: 00 Yes 1mg Oseas Montgomery metronidazo le 500 mg tablet 10-27 00:00: 00 No 1mg Flovent HFA 110 mcg/actuati on aerosol inhaler 10-20 00:00: 00 No 2mcg/ac tuation albuterol sulfate HFA 90 mcg/actuati on aerosol inhaler 10-20 00:00: 00 No 12mcg/a ctuatio n Flovent HFA 110 mcg/actuati on aerosol inhaler 10-20 00:00: 00 Yes 2mcg/ac tuation Oseas Montgomery albuterol sulfate HFA 90 mcg/actuati on aerosol inhaler 10-20 00:00: 00 Yes 12mcg/a ctuatio n Oseas Montgomery clotrimazol e 1 % topical cream 2016-02 00:00: 00 No 1% metronidazo le 500 mg tablet 2016-02 00:00: 00 No 1mg clotrimazol e 1 % topical cream 2016-02 00:00: 00 Yes 1% Oseas Montgomery metronidazo le 500 mg tablet 2016-02 00:00: 00 Yes 1mg Oseas Montgomery metronidazo le 500 mg tablet 08-22 00:00: 00 No 1mg metronidazo le 500 mg tablet 08-22 00:00: 00 Yes 1mg Oseas Montgomery cephalexin 500 mg tablet 08-01 00:00: 00 No 1mg clotrimazol e 1 % topical cream 08-01 00:00: 00 No 1% loratadine 10 mg tablet 08-01 00:00: 00 No 1mg clotrimazol e 1 % topical cream 08-01 00:00: 00 Yes 1% Oseas [facility] loratadine 10 mg tablet 08-01 00:00: 00 Yes 1mg Oseas Montgomery cephalexin 500 mg tablet 08-01 00:00: 00 Yes 1mg Oseas Montgomery Risperdal Consta 50 mg/2 mL intramuscul ar syringe 06-10 00:00: 00 No 1mg/2 mL benztropine 1 mg tablet 06-10 00:00: 00 No 1mg Risperdal Consta 50 mg/2 mL intramuscul ar syringe 06-10 00:00: 00 Yes 1mg/2 mL Oseas Montgomery benztropine 1 mg tablet 06-10 00:00: 00 Yes 1mg Oseas Montgomery Keflex 500 mg capsule 09-12 00:00: 00 No 1mg Keflex 500 mg capsule 09-12 00:00: 00 Yes 1mg Oseas Montgomery benztropine 1 mg tablet 08-18 00:00: 00 No mg benztropine 1 mg tablet 08-18 00:00: 00 Yes mg Oseas Montgomery risperidone 2 mg tablet 07-22 00:00: 00 No mg risperidone 2 mg tablet 07-22 00:00: 00 Yes mg Oseas Montgomery Immunizations Ordered Immunization Name Filled Immunization Name Date Status Comments Source Influenza, seasonal, inj 2018-12-24 00:00:00 Completed Influenza, seasonal, inj Influenza, seasonal, inj 2018-12-24 00:00:00 Completed Oseas Montgomery Vital Signs Vital Name Observation Time Observation Value Comments S ourrichard BP Systolic 2024-02-24 15:45:00 176 mm[Hg] Step hen Major Montgomery BP Diastolic 2024-02-24 15:45:00 79 mm[Hg] Lino phen Major Montgomery Weight Measured 2024-02-24 15:45:00 296.00 pounds Oseas Montgomery Height Measured 2024-02-24 15:45:00 62.50 inches Oseas Montgomery Body Temperature 2024-02-24 15:45:00 97.80 degrees Oseas Montgomery Heart Rate 2024-02-24 15:45:00 97.00 /min Munira en F Ulises Respiratory Rate 2024-02-24 15:45:00 19.00 /min Oseas Gonsalves Ulises BP Systolic 2023-07-22 11:17:00 145 mm[Hg] Step hen F Ulises BP Diastolic 2023-07-22 11:17:00 89 mm[Hg] Lino phen F Ulises Weight Measured 2023-07-22 11:17:00 291.20 pounds Oseas F Ulises Height Measured 2023-07-22 11:17:00 62.50 inches Oseas F Ulises Body Temperature 2023-07-22 11:17:00 98.20 degrees Oseas F Ulises Heart Rate 2023-07-22 11:17:00 94.00 /min Munira en F Ulises Respiratory Rate 2023-07-22 11:17:00 17.00 /min Oseas F Ulises BP Systolic 2023-07-16 13:19:00 149 mm[Hg] Step hen F Ulises BP Diastolic 2023-07-16 13:19:00 87 mm[Hg] Lino phen F Ulises Weight Measured 2023-07-16 13:19:00 297.00 pounds Oseas F Ulises Height Measured 2023-07-16 13:19:00 62.50 inches Oseas F Ulises Body Temperature 2023-07-16 13:19:00 98.00 degrees Oseas F Ulises Heart Rate 2023-07-16 13:19:00 92.00 /min Munira en F Ulises Respiratory Rate 2023-07-16 13:19:00 16.00 /min Oseas F Ulises BP Systolic 2023-02-12 17:48:00 140 mm[Hg] Step hen F Ulises BP Diastolic 2023-02-12 17:48:00 93 mm[Hg] Lino phen F Ulises Weight Measured 2023-02-12 17:48:00 Oseas F Ulises Height Measured 2023-02-12 17:48:00 62.50 inches Oseas F Ulises Body Temperature 2023-02-12 17:48:00 98.40 degrees Oseas F Ulises Heart Rate 2023-02-12 17:48:00 97.00 /min Munira en F Ulises Respiratory Rate 2023-02-12 17:48:00 17.00 /min Oseas F Ulises BP Systolic 2022-06-26 11:16:00 127 mm[Hg] Step hen F Ulises BP Diastolic 2022-06-26 11:16:00 81 mm[Hg] Lino phen F Ulises Weight Measured 2022-06-26 11:16:00 Oseas F Ulises Height Measured 2022-06-26 11:16:00 62.50 inches Oseas F Ulises Body Temperature 2022-06-26 11:16:00 98.30 degrees Oseas F Ulises Heart Rate 2022-06-26 11:16:00 106.00 /min Step hen F Ulises Respiratory Rate 2022-06-26 11:16:00 17.00 /min Oseas F Ulises BP Systolic 2022-05-28 15:00:00 125 mm[Hg] Step hen F Ulises BP Diastolic 2022-05-28 15:00:00 76 mm[Hg] Lino phen F Ulises Weight Measured 2022-05-28 15:00:00 287.80 pounds Oseas F Ulises Height Measured 2022-05-28 15:00:00 63.50 inches Oseas F Ulises Body Temperature 2022-05-28 15:00:00 98.40 degrees Oseas F Ulises Heart Rate 2022-05-28 15:00:00 109.00 /min Step hen F Ulises Respiratory Rate 2022-05-28 15:00:00 18.00 /min Oseas F Ulises BP Systolic 2022-05-22 13:58:00 146 mm[Hg] Step hen F Ulises BP Diastolic 2022-05-22 13:58:00 93 mm[Hg] Lino phen F Ulises Weight Measured 2022-05-22 13:58:00 98.20 pounds Oseas F Ulises Height Measured 2022-05-22 13:58:00 63.50 inches Oseas F Ulises Body Temperature 2022-05-22 13:58:00 98.20 degrees Oseas F Ulises Heart Rate 2022-05-22 13:58:00 90.00 /min Munira en F Ulises Respiratory Rate 2022-05-22 13:58:00 18.00 /min Oseas F Ulises BP Systolic 2022-05-07 13:28:00 155 mm[Hg] Step hen F Ulises BP Diastolic 2022-05-07 13:28:00 102 mm[Hg] Lino phen F Ulises Weight Measured 2022-05-07 13:28:00 283.20 pounds Oseas F Ulises Height Measured 2022-05-07 13:28:00 63.50 inches Oseas F Ulises Body Temperature 2022-05-07 13:28:00 97.80 degrees Oseas F Ulises Heart Rate 2022-05-07 13:28:00 100.00 /min Step hen F Ulises Respiratory Rate 2022-05-07 13:28:00 18.00 /min Oseas F Ulises BP Systolic 2022-03-21 18:00:00 149 mm[Hg] Step hen F Ulises BP Diastolic 2022-03-21 18:00:00 92 mm[Hg] Lino phen F Ulises Weight Measured 2022-03-21 18:00:00 288.60 pounds Oseas F Ulises Height Measured 2022-03-21 18:00:00 63.50 inches Oseas F Ulises Body Temperature 2022-03-21 18:00:00 98.10 degrees Oseas F Ulises Heart Rate 2022-03-21 18:00:00 105.00 /min Step hen F Ulises Respiratory Rate 2022-03-21 18:00:00 18.00 /min Oseas F Ulises BP Systolic 2021-11-21 10:24:00 161 mm[Hg] Step hen F Ulises BP Diastolic 2021-11-21 10:24:00 91 mm[Hg] Lino phen F Ulises Weight Measured 2021-11-21 10:24:00 300.00 pounds Oseas F Ulises Height Measured 2021-11-21 10:24:00 63.50 inches Oseas F Ulises Body Temperature 2021-11-21 10:24:00 98.00 degrees Oseas F Ulises Heart Rate 2021-11-21 10:24:00 101.00 /min Step hen F Ulises Respiratory Rate 2021-11-21 10:24:00 18.00 /min Oseas F Ulises BP Systolic 2021-04-09 17:32:00 Step hen F Ulises BP Diastolic 2021-04-09 17:32:00 Lino phen F Ulises Weight Measured 2021-04-09 17:32:00 293.80 pounds Oseas F Ulises Height Measured 2021-04-09 17:32:00 63.50 inches Oseas F Ulises Body Temperature 2021-04-09 17:32:00 98.10 degrees Oseas F Ulises Heart Rate 2021-04-09 17:32:00 101.00 /min Step hen F Ulises Respiratory Rate 2021-04-09 17:32:00 16.00 /min Oseas F Ulises BP Systolic 2019-11-26 13:17:00 152 mm[Hg] BP Diastolic 2019-11-26 13:17:00 97 mm[Hg] Weight Measured 2019-11-26 13:17:00 265.20 pounds Height Measured 2019-11-26 13:17:00 63.50 inches Body Temperature 2019-11-26 13:17:00 98.10 degrees Heart Rate 2019-11-26 13:17:00 102.00 /min Respiratory Rate 2019-11-26 13:17:00 17.00 /min BP Systolic 2019-06-14 17:17:00 137 mm[Hg] BP Diastolic 2019-06-14 17:17:00 81 mm[Hg] Weight Measured 2019-06-14 17:17:00 247.00 pounds Height Measured 2019-06-14 17:17:00 63.50 inches Body Temperature 2019-06-14 17:17:00 98.70 degrees Heart Rate 2019-06-14 17:17:00 93.00 /min Respiratory Rate 2019-06-14 17:17:00 18.00 /min BP Systolic 2018-12-24 16:11:00 148 mm[Hg] BP Diastolic 2018-12-24 16:11:00 87 mm[Hg] Weight Measured 2018-12-24 16:11:00 247.20 pounds Height Measured 2018-12-24 16:11:00 63.50 inches Body Temperature 2018-12-24 16:11:00 99.10 degrees Heart Rate 2018-12-24 16:11:00 94.00 /min Respiratory Rate 2018-12-24 16:11:00 18.00 /min BP Systolic 2018-12-24 15:36:00 148 mm[Hg] BP Diastolic 2018-12-24 15:36:00 87 mm[Hg] Weight Measured 2018-12-24 15:36:00 247.20 pounds Height Measured 2018-12-24 15:36:00 63.50 inches Body Temperature 2018-12-24 15:36:00 99.10 degrees Heart Rate 2018-12-24 15:36:00 94.00 /min Respiratory Rate 2018-12-24 15:36:00 18.00 /min BP Systolic 2018-03-09 13:28:00 131 mm[Hg] BP Diastolic 2018-03-09 13:28:00 82 mm[Hg] Weight Measured 2018-03-09 13:28:00 256.80 pounds Height Measured 2018-03-09 13:28:00 63.50 inches Body Temperature 2018-03-09 13:28:00 97.90 degrees Heart Rate 2018-03-09 13:28:00 82.00 /min Respiratory Rate 2018-03-09 13:28:00 18.00 /min BP Systolic 2017-11-17 11:23:00 137 mm[Hg] BP Diastolic 2017-11-17 11:23:00 83 mm[Hg] Weight Measured 2017-11-17 11:23:00 259.80 pounds Height Measured 2017-11-17 11:23:00 63.50 inches Body Temperature 2017-11-17 11:23:00 98.00 degrees Heart Rate 2017-11-17 11:23:00 91.00 /min Respiratory Rate 2017-11-17 11:23:00 16.00 /min BP Systolic 2017-10-30 10:46:00 154 mm[Hg] BP Diastolic 2017-10-30 10:46:00 87 mm[Hg] Weight Measured 2017-10-30 10:46:00 258.60 pounds Height Measured 2017-10-30 10:46:00 63.50 inches Body Temperature 2017-10-30 10:46:00 97.90 degrees Heart Rate 2017-10-30 10:46:00 92.00 /min Respiratory Rate 2017-10-30 10:46:00 18.00 /min BP Systolic 2017-10-20 10:22:00 139 mm[Hg] BP Diastolic 2017-10-20 10:22:00 87 mm[Hg] Weight Measured 2017-10-20 10:22:00 Height Measured 2017-10-20 10:22:00 Body Temperature 2017-10-20 10:22:00 Heart Rate 2017-10-20 10:22:00 Respiratory Rate 2017-10-20 10:22:00 Plan of Care Planned Activity Planned Date Details Comments Source Goal Plan of Care Note [code = 42797-3] Goal Plan of Care Note [code = 76893-5] Goal Plan of Care Note [code = 44325-9] Goal Plan of Care Note [code = 48621-1] Goal Plan of Care Note [code = 51609-0] Goal Plan of Care Note [code = 09169-6] Goal Plan of Care Note [code = 00211-5] Goal Plan of Care Note [code = 32592-2] Goal Plan of Care Note [code = 57530-9] Goal Plan of Care Note [code = 51934-8] Goal Plan of Care Note [code = 78347-9] Goal Plan of Care Note [code = 33474-0] Goal Plan of Care Note [code = 48099-9] Goal Plan of Care Note [code = 64595-9] Goal Plan of Care Note [code = 29134-9] Goal Plan of Care Note [code = 20833-9] Goal Plan of Care Note [code = 35160-7] Goal Plan of Care Note [code = 17687-7] Goal Plan of Care Note [code = 51994-7] Goal Plan of Care Note [code = 46080-2] Goal Plan of Care Note [code = 53405-7] Goal Plan of Care Note [code = 36084-1] Goal Plan of Care Note [code = 08681-9] Goal Plan of Care Note [code = 83032-3] Goal Plan of Care Note [code = 42823-8] Goal Plan of Care Note [code = 74010-5] Goal Plan of Care Note [code = 47568-6] Goal Plan of Care Note [code = 32858-3] Goal Plan of Care Note [code = 47302-5] Goal Plan of Care Note [code = 33631-1] Goal Plan of Care Note [code = 87547-2] Goal Plan of Care Note [code = 08364-9] Goal Plan of Care Note [code = 14662-4] Goal Plan of Care Note [code = 79980-7] Goal Plan of Care Note [code = 44357-7] Goal Plan of Care Note [code = 27832-8] Goal Plan of Care Note [code = 56297-3] Goal Plan of Care Note [code = 83872-7] Goal Plan of Care Note [code = 32646-0] Goal Plan of Care Note [code = 74276-4] Goal Plan of Care Note [code = 34269-3] Goal Plan of Care Note [code = 72002-1] Encounters Start Date/Time End Date/Time Encounter Type Admission Type Attending Clinicians Care Facility Care Department Encounter ID Source 2024-02-24 15:36:26 2024-02-24 15:36:26 Outpatient [facility] S[facility] [id number] [facility]se[facility] 2024-02-24 00:00:00 2024-02-24 00:00:00 Outpatient Visit SFA [id number] Oseas Montgomery 2023-07-22 11:10:12 2023-07-22 11:10:12 Outpatient SFA SFA 0528 Oseas Montgomery 2023-07-22 00:00:00 2023-07-22 00:00:00 Outpatient Visit SFA [id number] Oseas Montgomery 2023-07-16 13:11:09 2023-07-16 13:11:09 Outpatient SFA SFA 22 Oseas Montgomery 2023-07-16 00:00:00 2023-07-16 00:00:00 Outpatient Visit SFA [id number] Oseas Montgomery 2023-02-13 16:03:56 2023-02-13 16:03:56 Outpatient SFA SFA 1 Oseas Montgomery 2023-02-12 17:41:34 2023-02-12 17:41:34 Outpatient SFA SFA 1220 Oseas Montgomery 2022-06-26 11:08:55 2022-06-26 11:08:55 Outpatient SFA SFA [id number] Oseas Montgomery 2022-05-28 14:44:08 2022-05-28 14:44:08 Outpatient SFA SFA [id number] Oseas Montgomery 2022-05-23 11:44:23 2022-05-23 11:44:23 Outpatient SFA SFA [id number] Oseas Montgomery 2022-05-22 13:47:11 2022-05-22 13:47:11 Outpatient SFA SFA [id number] Oseas Montgomery 2022-05-07 13:16:53 2022-05-07 13:16:53 Outpatient [facility] 0314 Oseas Montgomery 2022-03-21 17:51:22 2022-03-21 17:51:22 Outpatient [facility] [id number] Oseas Montgomery 2021-11-21 00:00:00 2021-11-21 00:00:00 Outpatient Visit [id number] Results Test Description Test Time Test Comments Results Result Co mments Source Oseas MontgomeryPAP TEST, THINPREP, IMAGED + HPV HIGH RISK + GC AND CHLAMYDIA [id number] 15:33:12* Test Item Value Reference Range Interpretation Comme nts SOURCE: (test code = 8001) Unspecified SLIDES: (test code = 8011) 2 LMP: (test code = 8021) NOT GIVEN SPECIMEN ADEQUACY: (test code = 98317) (NOTE) Satisfactory for evaluation. INTERPRETATION: (test code = 91989) NILM/NO EPITH. ABNORMALITY;SEE BELOW --- - NEGATIVE FOR INTRAEPITHELIAL LESION OR MALIGNANCY (NILM) ---- OTHER COMMENTS: (test code = 8081) (NOTE) Due to technical or specimen issues, imaging could not beperformed. A flipping machine operator has manually screened this slide.Interpreted using an alternate method of processing. This testwas developed and its performance characteristics [facility] It has not been cleared orapproved by the FDA. The laboratory is regulated under CLIA asqualified to perform high-complexity testing. This test is usedfor clinical purposes. It should not be regarded asinvestigational or for research. CYTOTECHNOLOGIS T: (test code = 8101) CORINNA Mccall(ASCP)IAC LOCATION: (test code = 65449) (NOTE) Specimens proces sed and interpreted at [facility], [address] [place] [address], , CLIA: [id number] CPT: (test code = 8140) [address] UNLESS OTHERWISE INDICATED, COMPUTER AIDED AND CARDIOLOGY RN SCREENING PERFORMED. The Pap test is a screening test with an inherent, but low probability of error. Your patient should be reminded to consult you immediately if she experiences any suspicious signs or symptoms, regardless of her Pap test result. An alternate report format containing images or consolidated prior Pap history is available as applicable. HPV HIGH RISK INTERP (test code = 04809) NEGATIVE NEGATIVE HPV 16 (test code = 39183) NEGATIVE HPV 18 (test code = 79631) NEGATIVE HPV, HR, OTHER GENOTYPES (test code = 74730) NEGATIVE Testing methodol ogy is real-time PCR utilizing hydrolysis probes with the Haley Kathrin system. The test individually detects genotypes 16 and 18, as well as the other 12 high risk types (31,33,35,39,45,51,52,5 6,58,59,66,68). The expected result is negative. A negative result does not rule out the presence of HPV not included in the genotype set, a low level of infection or specimen sampling error. GONORRHEA, NAAT, THINPREP (test code = 06699) NEGATIVE NEGATIVE A negative resul t does not exclude low level infection, specimensampling error, or collection error. Testing is performed with the Haley Kathrin 6800/8800 systems usingreal-time Polymerase Chain Reaction (PCR) method. CHLAMYDIA, NAAT, THINPREP (test code = 90450) NEGATIVE NEGATIVE A negative resul t does not exclude low level infection, specimensampling error, or collection error. Testing is performed with the Haley Kathrin 6800/8800 systems usingreal-time Polymerase Chain Reaction (PCR) method. UNLESS OTHERWISE INDICATED, ALL TESTING PERFORMED AT [facility] [address] [place] [address] ACQUISITION ASSOCIATE: KARTHIKEYAN ANN M.D. CLIA NUMBER [id number] [place]. [id number] HCV RNA, PCR [id number] 16:35:47* Test Item Value Reference Range Interpretation Comme nts HCV RNA, PCR QUANT (test code = 4571) NOT DETEC IU/ML HCV VIRAL LOG (test code = 95959) NOT DETEC LOG IU/ML HCV RNA was not detected, indicating no current HCV infection.Reactive HCV antibody result may be due to biologic false positive.In certain situations, follow up HCV RNA testing may be indicated(suspected HCV exposure within past 6 months or clinical evidence ofHCV disease). Range of quantitation is 15-100,000,000 IU/mL, (1.176-8.000 logIU/mL). Samples with HCV RNA detected below the limit ofquantitation are reported as <15 IU/mL. Assay methodology ispolymerase chain reaction (PCR) using the Haley Kathrin 6800/8800system. The expected range is NOT DETECTED. UNLESS OTHERWISE INDICATED, ALL TESTING PERFORMED AT [facility] [address] [place] [address] ACQUISITION ASSOCIATE: KARTHIKEYAN ANN M.D. CLIA NUMBER [id number] [place] [id number] HCV RNA, PCR QUANT [REFLEX]2023-02-18 00:00:00* Test Item Value Reference Range Interpretation Comme nts HCV RNA, PCR QUANT (test code = 4571) NOT DETEC IU/ML HCV VIRAL LOG (test code = 83934) NOT DETEC LOGIU/ML Oseas F AustinHCV RNA, PCR QUANT [REFLEX]2023-02-18 00:00:00* Test Item Value Reference Range Interpretation Comme nts HCV RNA, PCR QUANT (test code = 4571) NOT DETEC IU/ML HCV VIRAL LOG (test code = 73751) NOT DETEC LOGIU/ML Oseas F AustinHCV RNA, PCR QUANT [REFLEX]2023-02-18 00:00:00* Test Item Value Reference Range Interpretation Comme nts HCV RNA, PCR QUANT (test code = 4571) NOT DETEC IU/ML HCV VIRAL LOG (test code = 72386) NOT DETEC LOGIU/ML Oseas F AustinHEPATITIS C REFLEX [id number] 04:44:48* Test Item Value Reference Range Interpretation Comme nts HEPATITIS C ANTIBODY (test c ode = 4675) REACTIVE NON-REACTIVE A HEPATITIS C REFLEX [id number] 00:00:00* Test Item Value Reference Range Interpretation Comme nts HEPATITIS C ANTIBODY (test c ode = 4675) REACTIVE Oseas Gonsalves AustinHEPATITIS C REFLEX [id number] 00:00:00* Test Item Value Reference Range Interpretation Comme nts HEPATITIS C ANTIBODY (test c ode = 4675) REACTIVE Oseas Gonsalves AustinHEPATITIS C REFLEX [id number] 00:00:00* Test Item Value Reference Range Interpretation Comme nts HEPATITIS C ANTIBODY (test c ode = 4675) REACTIVE Oseas Gonsalves AustinHEPATITIS C [id number] 14:33:40* Test Item Value Reference Range Interpretation Comme nts HEPATITIS C GENOTYPE (test code = 94052) 1a Assay method ology is real-time PCR amplification of the 5'UTR pglTZ1o regions of the HCV genome utilizing the Digital Envoy RealTime HCVGenotype II assay and Jeong HCV Genotype Plus assay. Possiblegenotypes include 1a, 1b, 2, 3, 4, 5, and 6. [facility] has important pathology staff changes effective 04/24/2022. New pathology staff will provide uninterrupted, excellent patient care and clinical consultation. See URL: [email or web address]. UNLESS OTHERWISE INDICATED, ALL TESTING PERFORMED AT [facility] [address] [place] [address] ACQUISITION ASSOCIATE: KARTHIKEYAN ANN M.D. CLIA NUMBER [id number] [facility] [place]. [id number] HEPATITIS C [id number] 00:00:00* Test Item Value Reference Range Interpretation Comme nts HEPATITIS C GENOTYPE (test c ode = 23181) 1a Oseas Gonsalves AustinHEPATITIS C [id number] 00:00:00* Test Item Value Reference Range Interpretation Comme nts HEPATITIS C GENOTYPE (test c ode = 95840) 1a Oseas Gonsalves AustinHEPATITIS C [id number] 00:00:00* Test Item Value Reference Range Interpretation Comme nts HEPATITIS C GENOTYPE (test c ode = 23861) 1a Oseas MontgomeryHIV 1/2 4TH GEN, RFLX [id number] 04:34:22* Test Item Value Reference Range Interpretation Comme nts HIV 1/2 4TH GEN, RFLX CONF ( test code = 3514) NON-REACTIVE NON-REACTIVE COMPREHENSIVE METABOLIC [id number] 03:49:43* Test Item Value Reference Range Interpretation Comme nts GLUCOSE (test code = 2217) 102 MG/DL 70-99 H BUN (test code = 2207) 15 MG/DL 6-20 CREATININE (test code = 2214) 0.83 MG/DL 0.60-1.30 eGFR (2020 CKD-EPI) (test code = 18098) 84 ML/MIN/1.73 >60 CALC BUN/CREAT (test code = 2235) 18 RATIO 6-28 SODIUM (test code = 223) 139 MEQ/L 133-146 POTASSIUM (test code = 2228) 4.5 MEQ/L 3.5-5.4 CHLORIDE (test code = 5) 100 MEQ/L 95-107 CARBON DIOXIDE (test code = 6) 28 MEQ/L 19-31 CALCIUM (test code = 2209) 9.1 MG/DL 8.5-10.5 PROTEIN, TOTAL (test code = 222) 7.5 G/DL 6.1-8.3 ALBUMIN (test code = 2201) 3.9 G/DL 3.5-5.2 CALC GLOBULIN (test code = 2240) 3.6 G/DL 1.9-3.7 CALC A/G RATIO (test code = 223) 1.1 RATIO 1.0-2.6 BILIRUBIN, TOTAL (test code = 2206) 0.3 MG/DL See_Comment [Automated me ssage] The system which generated this result transmitted reference range: <=1.2. The reference range was not used to interpret this result as normal/abnormal. ALKALINE PHOSPHATASE (test code = 4) 54 U/L 40-133 AST (test code = 2218) 21 U/L 9-40 ALT (test code = 2219) 25 U/L 5-40 COMPREHENSIVE METABOLIC [id number] 00:00:00* Test Item Value Reference Range Interpretation Comme nts GLUCOSE (test code = 2217) 102 MG/DL BUN (test code = 8) 15 MG/DL CREATININE (test code = 2214) 0.83 MG/DL eGFR (2020 CKD-EPI) (test co de = 85564) 84 ML/MIN/1.73 CALC BUN/CREAT (test code = 2235) 18 RATIO SODIUM (test code = 2231) 139 MEQ/L POTASSIUM (test code = 2228) 4.5 MEQ/L CHLORIDE (test code = 2215) 100 MEQ/L CARBON DIOXIDE (test code = 2206) 28 MEQ/L CALCIUM (test code = 2209) 9.1 MG/DL PROTEIN, TOTAL (test code = 2229) 7.5 G/DL ALBUMIN (test code = 2201) 3.9 G/DL CALC GLOBULIN (test code = 2240) 3.6 G/DL CALC A/G RATIO (test code = 2234) 1.1 RATIO BILIRUBIN, TOTAL (test code = 2207) 0.3 MG/DL ALKALINE PHOSPHATASE (test code = 2204) 54 U/L AST (test code = 2218) 21 U/L ALT (test code = 2219) 25 U/L Oseas MontgomeryHIV AB/AG COMBO RFLX [id number] 00:00:00* Test Item Value Reference Range Interpretation Comme nts HIV 1/2 4TH GEN, RFLX CONF ( test code = 3514) NON-REACTIVE Oseas Gonsalves UlisesCOMPREHENSIVE METABOLIC [id number] 00:00:00* Test Item Value Reference Range Interpretation Comme nts GLUCOSE (test code = 2217) 102 MG/DL BUN (test code = 2208) 15 MG/DL CREATININE (test code = 2214) 0.83 MG/DL eGFR (2020 CKD-EPI) (test co de = 52963) 84 ML/MIN/1.73 CALC BUN/CREAT (test code = 2235) 18 RATIO SODIUM (test code = 2231) 139 MEQ/L POTASSIUM (test code = 2228) 4.5 MEQ/L CHLORIDE (test code = 2215) 100 MEQ/L CARBON DIOXIDE (test code = 2206) 28 MEQ/L CALCIUM (test code = 2209) 9.1 MG/DL PROTEIN, TOTAL (test code = 2229) 7.5 G/DL ALBUMIN (test code = 2201) 3.9 G/DL CALC GLOBULIN (test code = 2240) 3.6 G/DL CALC A/G RATIO (test code = 2234) 1.1 RATIO BILIRUBIN, TOTAL (test code = 2207) 0.3 MG/DL ALKALINE PHOSPHATASE (test code = 2204) 54 U/L AST (test code = 2218) 21 U/L ALT (test code = 2219) 25 U/L Oseas MontgomeryHIV AB/AG COMBO RFLX [id number] 00:00:00* Test Item Value Reference Range Interpretation Comme nts HIV 1/2 4TH GEN, RFLX CONF ( test code = 3514) NON-REACTIVE Oseas MontgomeryCOMPREHENSIVE METABOLIC [id number] 00:00:00* Test Item Value Reference Range Interpretation Comme nts GLUCOSE (test code = 2217) 102 MG/DL BUN (test code = 2208) 15 MG/DL CREATININE (test code = 2214) 0.83 MG/DL eGFR (2020 CKD-EPI) (test co de = 85824) 84 ML/MIN/1.73 CALC BUN/CREAT (test code = 2235) 18 RATIO SODIUM (test code = 2231) 139 MEQ/L POTASSIUM (test code = 2228) 4.5 MEQ/L CHLORIDE (test code = 2215) 100 MEQ/L CARBON DIOXIDE (test code = 2206) 28 MEQ/L CALCIUM (test code = 2209) 9.1 MG/DL PROTEIN, TOTAL (test code = 2229) 7.5 G/DL ALBUMIN (test code = 2201) 3.9 G/DL CALC GLOBULIN (test code = 2240) 3.6 G/DL CALC A/G RATIO (test code = 2234) 1.1 RATIO BILIRUBIN, TOTAL (test code = 2207) 0.3 MG/DL ALKALINE PHOSPHATASE (test code = 2204) 54 U/L AST (test code = 2218) 21 U/L ALT (test code = 2219) 25 U/L Oseas MontgomeryHIV AB/AG COMBO RFLX [id number] 00:00:00* Test Item Value Reference Range Interpretation Comme nts HIV 1/2 4TH GEN, RFLX CONF ( test code = 3514) NON-REACTIVE Oseas MontgomeryHCV RNA, PCR [id number] 20:13:44* Test Item Value Reference Range Interpretation Comme nts HCV RNA, PCR QUANT (test code = 4571) 6003031 IU/ML H HCV VIRAL LOG (test code = 84832) 6.914 LOG IU/ML H Range of quantit ation is 15-100,000,000 IU/mL, (1.176-8.000 logIU/mL). Samples with HCV RNA detected below the limit ofquantitation are reported as <15 IU/mL. Assay methodology ispolymerase chain reaction (PCR) using the Haley Kathrin 6800/8800system. The expected range is NOT DETECTED. [facility] has important pathology staff changes effective 04/24/2022. New pathology staff will provide uninterrupted, excellent patient care and clinical consultation. See URL: [email or web address]. UNLESS OTHERWISE INDICATED, ALL TESTING PERFORMED AT [facility] [address] [place] [address] ACQUISITION ASSOCIATE: KARTHIKEYAN ANN M.D. CLIA NUMBER [id number] [facility] [place]. [id number] HCV RNA, PCR [id number] 00:00:00* Test Item Value Reference Range Interpretation Comme nts HCV RNA, PCR QUANT (test cod e = 4571) 3498230 IU/ML HCV VIRAL LOG (test code = 03888) 6.914 LOGIU/ML Oesas MontgomeryHCV RNA, PCR [id number] 00:00:00* Test Item Value Reference Range Interpretation Comme nts HCV RNA, PCR QUANT (test cod e = 4571) 3315688 IU/ML HCV VIRAL LOG (test code = 00722) 6.914 LOGIU/ML Oseas MontgomeryHCV RNA, PCR [id number] 00:00:00* Test Item Value Reference Range Interpretation Comme nts HCV RNA, PCR QUANT (test cod e = 4571) 8741186 IU/ML HCV VIRAL LOG (test code = 46041) 6.914 LOGIU/ML Oseas Woody, [id number] 12:47:14* Test Item Value Reference Range Interpretation Comme nts HEMATOCRIT (test code = 1004) 45.6 % 34.0-45.0 H FOLATE, RBC (test code = 2690) 930 NG/ML 499-1504 INTERPRETI VE RANGES DEFICIENCY . . . . . . . . . . . . . . . NG/ML <=150 POSSIBLE DEFICIENCY. . . . . . . . . . . NG/ML 151-498 SUFFICIENT . . . . . . . . . . . . . . . NG/ML 499-1504 EXCESS . . . . . . . . . . . . . . . . . NG/ML >1504 [facility] has important pathology staff changes effective 04/24/2022. New pathology staff will provide uninterrupted, excellent patient care and clinical consultation. See URL: [email or web address]. UNLESS OTHERWISE INDICATED, ALL TESTING PERFORMED AT [facility] [address] [place] [address] ACQUISITION ASSOCIATE: KARTHIKEYAN ANN M.D. CLIA NUMBER [id number] [facility] [place]. [id number] VITAMIN [id number] 06:49:00* Test Item Value Reference Range Interpretation Comme [facility] VITAMIN B-12 (test code = 2840) 440 PG/ML 200-950 TSH, THIRD [id number] 06:49:00* Test Item Value Reference Range Interpretation Comme [facility] TSH, THIRD GENERATION (test code = 2821) 1.460 UIU/ML 0.400-4.100 [id number] 04:33:37* Test Item Value Reference Range Interpretation Comme nts RPR RESULT (test code = 3501) NON-REACTIVE NON-REACTIVE RPR TITER (test code = 3500) NOT INDIC. TITER NOT INDIC. HEPATITIS PANEL, [id number] 03:12:03* Test Item Value Reference Range Interpretation Comme nts HEPATITIS A IgM (test code = 86477) NON-REACTIVE NON-REACTIVE HEPATITIS B CORE IgM (test code = 4644) NON-REACTIVE NON-REACTIVE HEPATITIS B SURF AG (test code = 2739) NON-REACTIVE NON-REACTIVE HEPATITIS C ANTIBODY (test code = 4675) REACTIVE NON-REACTIVE A INTERPRETATION HEPATITIS A: (test code = 2552) (NOTE) Hepatitis A serology shows no evidence of acute hepatitis A. INTERPRETATION HEPATITIS B: (test code = 46192) (NOTE) Hepatitis B serology shows no evidence of acute hepatitis B andno indication of exposure to hepatitis B virus in the previous konstantin eight months. INTERPRETATION HEPATITIS C: (test code = 73600) (NOTE) Hepatitis C serology is consistent with exposure to hepatitis Cvirus. The CDC recommends performing a supplemental confirmatory teston initial positive hepatitis C antibody tests. HCV PCR quantitativecan be used to confirm these results on a new sample (See MMWR, 2003;52 RR-3). HEMOGLOBIN [id number] 02:55:27* Test Item Value Reference Range Interpretation Comme nts HEMOGLOBIN A1c (test code = 14429) 5.5 % 4.2-5.6 CBC W/AUTO DIFF WITH [id number] 02:29:24* Test Item Value Reference Range Interpretation Comme nts WBC (test code = 1001) 6.5 K/UL 3.5-11.0 RBC (test code = 1002) 5.05 M/UL 3.80-5.40 HEMOGLOBIN (test code = 1003) 15.2 G/DL 11.5-15.5 HEMATOCRIT (test code = 1004) 45.6 % 34.0-45.0 H MCV (test code = 1005) 90.3 fL 80.0-99.0 MCH (test code = 1006) 30.1 PG 25.0-33.0 MCHC (test code = 1007) 33.3 G/DL 31.0-36.0 RDW (test code = 1038) 12.5 % 11.5-15.0 NEUTROPHILS (test code = 1008) 51.0 % LYMPHOCYTES (test code = 1010) 41.3 % MONOCYTES (test code = 1011) 5.8 % EOSINOPHILS (test code = 1012) 1.1 % BASOPHILS (test code = 1013) 0.6 % IMMATURE GRANULOCYTES (test code = 1036) 0.2 % NUCLEATED RBCS (test code = 1065) 0.0 /100 WBC'S See_Comment [Automated Pomeloa ge] The system which generated this result transmitted reference range: 0.0. The reference range was not used to interpret this result as normal/abnormal. PLATELET COUNT (test code = 1015) 248 K/UL 130-400 ABSOLUTE NEUTROPHILS (test code = 1066) 3.34 K/UL 1.50-7.50 ABSOLUTE LYMPHOCYTES (test code = 1067) 2.70 K/UL 1.00-4.00 ABSOLUTE MONOCYTES (test code = 1068) 0.38 K/UL 0.20-1.00 ABSOLUTE EOSINOPHILS (test code = 1040) 0.07 K/UL 0.00-0.50 ABSOLUTE BASOPHILS (test code = 1069) 0.04 K/UL 0.00-0.20 ABS IMMATURE GRANULOCYTES (test code = 1020) 0.01 K/UL 0.00-0.10 ABS NUCLEATED RBCS (test code = 45853) 0.00 K/UL 0.00-0.11 VITAMIN [id number] 00:00:00* Test Item Value Reference Range Interpretation Comme nts VITAMIN B-12 (test code = 2840) 440 PG/ML Oseas MontgomeryTSH, THIRD [id number] 00:00:00* Test Item Value Reference Range Interpretation Comme nts TSH, THIRD GENERATION (test code = 2821) 1.460 UIU/ML Oseas [id number] 00:00:00* Test Item Value Reference Range Interpretation Comme nts RPR RESULT (test code = 3501) NON-REACTIVE RPR TITER (test code = 3500) NOT INDIC. TITER Oseas MontgomeryACUTE HEPATITIS [id number] 00:00:00* Test Item Value Reference Range Interpretation Comme nts HEPATITIS A IgM (test code = 85226) NON-REACTIVE HEPATITIS B CORE IgM (test c ode = 4644) NON-REACTIVE HEPATITIS B SURF AG (test co de = 2739) NON-REACTIVE HEPATITIS C ANTIBODY (test c ode = 4675) REACTIVE INTERPRETATION HEPATITIS A: (test code = 2552) (NOTE) INTERPRETATION HEPATITIS B: (test code = 14015) (NOTE) INTERPRETATION HEPATITIS C: (test code = 16113) (NOTE) Oseas MontgomeryFOLATE, [id number] 00:00:00* Test Item Value Reference Range Interpretation Comme nts HEMATOCRIT (test code = 1004) 45.6 % FOLATE, RBC (test code = 2690) 930 NG/ML Oseas MontgomeryHEMOGLOBIN [id number] 00:00:00* Test Item Value Reference Range Interpretation Comme tong HEMOGLOBIN A1c (test code = 26964) 5.5 % Oseas MontgomeryCBC W/AUTO [id number] 00:00:00* Test Item Value Reference Range Interpretation Comme nts WBC (test code = 1001) 6.5 K/UL RBC (test code = 1002) 5.05 M/UL HEMOGLOBIN (test code = 1003) 15.2 G/DL HEMATOCRIT (test code = 1004) 45.6 % MCV (test code = 1005) 90.3 fL MCH (test code = 1006) 30.1 PG MCHC (test code = 1007) 33.3 G/DL RDW (test code = 1038) 12.5 % NEUTROPHILS (test code = 1008) 51.0 % LYMPHOCYTES (test code = 1010) 41.3 % MONOCYTES (test code = 1011) 5.8 % EOSINOPHILS (test code = 1012) 1.1 % BASOPHILS (test code = 1013) 0.6 % IMMATURE GRANULOCYTES (test code = 1036) 0.2 % NUCLEATED RBCS (test code = 1065) 0.0 /100WBC'S PLATELET COUNT (test code = 1015) 248 K/UL ABSOLUTE NEUTROPHILS (test c ode = 1066) 3.34 K/UL ABSOLUTE LYMPHOCYTES (test c ode = 1067) 2.70 K/UL ABSOLUTE MONOCYTES (test cod e = 1068) 0.38 K/UL ABSOLUTE EOSINOPHILS (test c ode = 1040) 0.07 K/UL ABSOLUTE BASOPHILS (test cod e = 1069) 0.04 K/UL ABS IMMATURE GRANULOCYTES (t est code = 1020) 0.01 K/UL ABS NUCLEATED RBCS (test cod e = 95559) 0.00 K/UL Oseas MontgomeryVITAMIN [id number] 00:00:00* Test Item Value Reference Range Interpretation Comme nts VITAMIN B-12 (test code = 2840) 440 PG/ML Oseas MontgomeryTSH, THIRD [id number] 00:00:00* Test Item Value Reference Range Interpretation Comme nts TSH, THIRD GENERATION (test code = 2821) 1.460 UIU/ML Oseas [id number] 00:00:00* Test Item Value Reference Range Interpretation Comme nts RPR RESULT (test code = 3501) NON-REACTIVE RPR TITER (test code = 3500) NOT INDIC. TITER Oseas MontgomeryACUTE HEPATITIS [id number] 00:00:00* Test Item Value Reference Range Interpretation Comme nts HEPATITIS A IgM (test code = 14894) NON-REACTIVE HEPATITIS B CORE IgM (test c ode = 4644) NON-REACTIVE HEPATITIS B SURF AG (test co de = 2739) NON-REACTIVE HEPATITIS C ANTIBODY (test c ode = 4675) REACTIVE INTERPRETATION HEPATITIS A: (test code = 2552) (NOTE) INTERPRETATION HEPATITIS B: (test code = 65481) (NOTE) INTERPRETATION HEPATITIS C: (test code = 55366) (NOTE) Oseas MontgomeryFOLATE, [id number] 00:00:00* Test Item Value Reference Range Interpretation Comme nts HEMATOCRIT (test code = 1004) 45.6 % FOLATE, RBC (test code = 2690) 930 NG/ML Oseas MontgomeryHEMOGLOBIN [id number] 00:00:00* Test Item Value Reference Range Interpretation Comme nts HEMOGLOBIN A1c (test code = 64265) 5.5 % Oseas MontgomeryCBC W/AUTO [id number] 00:00:00* Test Item Value Reference Range Interpretation Comme nts WBC (test code = 1001) 6.5 K/UL RBC (test code = 1002) 5.05 M/UL HEMOGLOBIN (test code = 1003) 15.2 G/DL HEMATOCRIT (test code = 1004) 45.6 % MCV (test code = 1005) 90.3 fL MCH (test code = 1006) 30.1 PG MCHC (test code = 1007) 33.3 G/DL RDW (test code = 1038) 12.5 % NEUTROPHILS (test code = 1008) 51.0 % LYMPHOCYTES (test code = 1010) 41.3 % MONOCYTES (test code = 1011) 5.8 % EOSINOPHILS (test code = 1012) 1.1 % BASOPHILS (test code = 1013) 0.6 % IMMATURE GRANULOCYTES (test code = 1036) 0.2 % NUCLEATED RBCS (test code = 1065) 0.0 /100WBC'S PLATELET COUNT (test code = 1015) 248 K/UL ABSOLUTE NEUTROPHILS (test c ode = 1066) 3.34 K/UL ABSOLUTE LYMPHOCYTES (test c ode = 1067) 2.70 K/UL ABSOLUTE MONOCYTES (test cod e = 1068) 0.38 K/UL ABSOLUTE EOSINOPHILS (test c ode = 1040) 0.07 K/UL ABSOLUTE BASOPHILS (test cod e = 1069) 0.04 K/UL ABS IMMATURE GRANULOCYTES (t est code = 1020) 0.01 K/UL ABS NUCLEATED RBCS (test cod e = 79014) 0.00 K/UL Oseas MontgomeryVITAMIN [id number] 00:00:00* Test Item Value Reference Range Interpretation Comme nts VITAMIN B-12 (test code = 2840) 440 PG/ML Oseas MontgomeryTSH, THIRD [id number] 00:00:00* Test Item Value Reference Range Interpretation Comme nts TSH, THIRD GENERATION (test code = 2821) 1.460 UIU/ML Oseas [id number] 00:00:00* Test Item Value Reference Range Interpretation Comme nts RPR RESULT (test code = 3501) NON-REACTIVE RPR TITER (test code = 3500) NOT INDIC. TITER Oseas MontgomeryACUTE HEPATITIS [id number] 00:00:00* Test Item Value Reference Range Interpretation Comme nts HEPATITIS A IgM (test code = 14849) NON-REACTIVE HEPATITIS B CORE IgM (test c ode = 4644) NON-REACTIVE HEPATITIS B SURF AG (test co de = 2739) NON-REACTIVE HEPATITIS C ANTIBODY (test c ode = 4675) REACTIVE INTERPRETATION HEPATITIS A: (test code = 2552) (NOTE) INTERPRETATION HEPATITIS B: (test code = 78546) (NOTE) INTERPRETATION HEPATITIS C: (test code = 61581) (NOTE) Oseas MontgomeryFOLATE, [id number] 00:00:00* Test Item Value Reference Range Interpretation Comme nts HEMATOCRIT (test code = 1004) 45.6 % FOLATE, RBC (test code = 2690) 930 NG/ML Oseas MontgomeryHEMOGLOBIN [id number] 00:00:00* Test Item Value Reference Range Interpretation Comme nts HEMOGLOBIN A1c (test code = 35149) 5.5 % Oseas MontgomeryCBC W/AUTO [id number] 00:00:00* Test Item Value Reference Range Interpretation Comme nts WBC (test code = 1001) 6.5 K/UL RBC (test code = 1002) 5.05 M/UL HEMOGLOBIN (test code = 1003) 15.2 G/DL HEMATOCRIT (test code = 1004) 45.6 % MCV (test code = 1005) 90.3 fL MCH (test code = 1006) 30.1 PG MCHC (test code = 1007) 33.3 G/DL RDW (test code = 1038) 12.5 % NEUTROPHILS (test code = 1008) 51.0 % LYMPHOCYTES (test code = 1010) 41.3 % MONOCYTES (test code = 1011) 5.8 % EOSINOPHILS (test code = 1012) 1.1 % BASOPHILS (test code = 1013) 0.6 % IMMATURE GRANULOCYTES (test code = 1036) 0.2 % NUCLEATED RBCS (test code = 1065) 0.0 /100WBC'S PLATELET COUNT (test code = 1015) 248 K/UL ABSOLUTE NEUTROPHILS (test c ode = 1066) 3.34 K/UL ABSOLUTE LYMPHOCYTES (test c ode = 1067) 2.70 K/UL ABSOLUTE MONOCYTES (test cod e = 1068) 0.38 K/UL ABSOLUTE EOSINOPHILS (test c ode = 1040) 0.07 K/UL ABSOLUTE BASOPHILS (test cod e = 1069) 0.04 K/UL ABS IMMATURE GRANULOCYTES (t est code = 1020) 0.01 K/UL ABS NUCLEATED RBCS (test cod e = 55740) 0.00 K/UL Oseas Gonsalves AustinHEMOGLOBIN [id number] 05:27:43* Test Item Value Reference Range Interpretation Comme nts HEMOGLOBIN A1c (test code = 84385) 5.7 % 4.2-5.6 H COMPREHENSIVE METABOLIC [id number] 05:15:03* Test Item Value Reference Range Interpretation Comme nts GLUCOSE (test code = 2217) 109 MG/DL 70-99 H BUN (test code = 2208) 10 MG/DL 6-20 CREATININE (test code = 2214) 0.88 MG/DL 0.60-1.30 eGFR (2020 CKD-EPI) (test code = 59481) 78 ML/MIN/1.73 >60 CALC BUN/CREAT (test code = 2235) 11 RATIO 6-28 SODIUM (test code = 2231) 139 MEQ/L 133-146 POTASSIUM (test code = 2228) 4.8 MEQ/L 3.5-5.4 CHLORIDE (test code = 2215) 102 MEQ/L 95-107 CARBON DIOXIDE (test code = 2206) 24 MEQ/L 19-31 CALCIUM (test code = 2209) 9.1 MG/DL 8.5-10.5 PROTEIN, TOTAL (test code = 2229) 8.0 G/DL 6.1-8.3 ALBUMIN (test code = 2201) 4.3 G/DL 3.5-5.2 CALC GLOBULIN (test code = 2240) 3.7 G/DL 1.9-3.7 CALC A/G RATIO (test code = 2234) 1.2 RATIO 1.0-2.6 BILIRUBIN, TOTAL (test code = 2207) 0.3 MG/DL See_Comment [Automated me ssage] The system which generated this result transmitted reference range: <=1.2. The reference range was not used to interpret this result as normal/abnormal. ALKALINE PHOSPHATASE (test code = 2203) 62 U/L 40-133 AST (test code = 2218) 22 U/L 9-40 ALT (test code = 2219) 27 U/L 5-40 UNLESS OTHERWISE INDICATED, ALL TESTING PERFORMED [facility]OLOG[facility] [employer] [address] [place] [address] ACQUISITION ASSOCIATE: MASHA OLSEN M.D. CLIA NUMBER [id number] [facility] [place]. [id number] HEMOGLOBIN [id number] 00:00:00* Test Item Value Reference Range Interpretation Comme [facility] HEMOGLOBIN A1c (test code = 45079) 5.7 % Oseas MontgomeryCOMPREHENSIVE METABOLIC [id number] 00:00:00* Test Item Value Reference Range Interpretation Comme nts GLUCOSE (test code = 2217) 109 MG/DL BUN (test code = 2208) 10 MG/DL CREATININE (test code = 2214) 0.88 MG/DL eGFR (2020 CKD-EPI) (test co de = 61029) 78 ML/MIN/1.73 CALC BUN/CREAT (test code = 2235) 11 RATIO SODIUM (test code = 2231) 139 MEQ/L POTASSIUM (test code = 2228) 4.8 MEQ/L CHLORIDE (test code = 2215) 102 MEQ/L CARBON DIOXIDE (test code = 2206) 24 MEQ/L CALCIUM (test code = 2209) 9.1 MG/DL PROTEIN, TOTAL (test code = 2229) 8.0 G/DL ALBUMIN (test code = 2201) 4.3 G/DL CALC GLOBULIN (test code = 2240) 3.7 G/DL CALC A/G RATIO (test code = 2234) 1.2 RATIO BILIRUBIN, TOTAL (test code = 2207) 0.3 MG/DL ALKALINE PHOSPHATASE (test code = 2204) 62 U/L AST (test code = 2218) 22 U/L ALT (test code = 2219) 27 U/L Oseas Gonsalves AustinHEMOGLOBIN [id number] 00:00:00* Test Item Value Reference Range Interpretation Comme nts HEMOGLOBIN A1c (test code = 25520) 5.7 % Oseas Gonsalves AustinCOMPREHENSIVE METABOLIC [id number] 00:00:00* Test Item Value Reference Range Interpretation Comme nts GLUCOSE (test code = 2217) 109 MG/DL BUN (test code = 2208) 10 MG/DL CREATININE (test code = 2214) 0.88 MG/DL eGFR (2020 CKD-EPI) (test co de = 51733) 78 ML/MIN/1.73 CALC BUN/CREAT (test code = 2235) 11 RATIO SODIUM (test code = 2231) 139 MEQ/L POTASSIUM (test code = 2228) 4.8 MEQ/L CHLORIDE (test code = 2215) 102 MEQ/L CARBON DIOXIDE (test code = 2206) 24 MEQ/L CALCIUM (test code = 2209) 9.1 MG/DL PROTEIN, TOTAL (test code = 2229) 8.0 G/DL ALBUMIN (test code = 2201) 4.3 G/DL CALC GLOBULIN (test code = 2240) 3.7 G/DL CALC A/G RATIO (test code = 2234) 1.2 RATIO BILIRUBIN, TOTAL (test code = 2207) 0.3 MG/DL ALKALINE PHOSPHATASE (test code = 2204) 62 U/L AST (test code = 2218) 22 U/L ALT (test code = 2219) 27 U/L Oseas Gonsalves AustinHEMOGLOBIN [id number] 00:00:00* Test Item Value Reference Range Interpretation Comme nts HEMOGLOBIN A1c (test code = 38744) 5.7 % Oseas Gonsalves AustinCOMPREHENSIVE METABOLIC [id number] 00:00:00* Test Item Value Reference Range Interpretation Comme nts GLUCOSE (test code = 2217) 109 MG/DL BUN (test code = 2208) 10 MG/DL CREATININE (test code = 2214) 0.88 MG/DL eGFR (2020 CKD-EPI) (test co de = 15715) 78 ML/MIN/1.73 CALC BUN/CREAT (test code = 2235) 11 RATIO SODIUM (test code = 2231) 139 MEQ/L POTASSIUM (test code = 2228) 4.8 MEQ/L CHLORIDE (test code = 2215) 102 MEQ/L CARBON DIOXIDE (test code = 2206) 24 MEQ/L CALCIUM (test code = 2209) 9.1 MG/DL PROTEIN, TOTAL (test code = 2229) 8.0 G/DL ALBUMIN (test code = 2201) 4.3 G/DL CALC GLOBULIN (test code = 2240) 3.7 G/DL CALC A/G RATIO (test code = 2234) 1.2 RATIO BILIRUBIN, TOTAL (test code = 2207) 0.3 MG/DL ALKALINE PHOSPHATASE (test code = 2204) 62 U/L AST (test code = 2218) 22 U/L ALT (test code = 2219) 27 U/L Oseas MontgomeryC-REACTIVE [id number] 06:24:06* Test Item Value Reference Range Interpretation Comme nts C-REACTIVE PROTEIN (test code = 3513) 0.4 MG/DL <0.5 UNLESS OTHERW ISE INDICATED, ALL TESTING PERFORMED [facility] [address] [place] [id number] ACQUISITION ASSOCIATE: MASHA OLSEN M.D. CLIA NUMBER [id number] [facility] [place]. [id number] SEDIMENTATION [id number] 06:06:25* Test Item Value Reference Range Interpretation Comme nts SEDIMENTATION RATE (test cod e = 1017) 17 MM/HOUR 0-20 CBC W/AUTO DIFF WITH [id number] 04:52:45* Test Item Value Reference Range Interpretation Comme nts WBC (test code = 1001) 6.7 K/UL 3.5-11.0 RBC (test code = 1002) 4.67 M/UL 3.80-5.40 HEMOGLOBIN (test code = 1003) 14.3 G/DL 11.5-15.5 HEMATOCRIT (test code = 1004) 42.2 % 34.0-45.0 MCV (test code = 1005) 90.4 fL 80.0-99.0 MCH (test code = 1006) 30.6 PG 25.0-33.0 MCHC (test code = 1007) 33.9 G/DL 31.0-36.0 RDW (test code = 1038) 12.6 % 11.5-15.0 NEUTROPHILS (test code = 1008) 45.2 % LYMPHOCYTES (test code = 1010) 46.6 % MONOCYTES (test code = 1011) 6.0 % EOSINOPHILS (test code = 1012) 1.0 % BASOPHILS (test code = 1013) 0.9 % IMMATURE GRANULOCYTES (test code = 1036) 0.3 % NUCLEATED RBCS (test code = 1065) 0.0 /100 WBC'S See_Comment [Automated [employer] ge] The system which generated this result transmitted reference range: 0.0. The reference range was not used to interpret this result as normal/abnormal. PLATELET COUNT (test code = 1015) 258 K/UL 130-400 ABSOLUTE NEUTROPHILS (test code = 1066) 3.03 K/UL 1.50-7.50 ABSOLUTE LYMPHOCYTES (test code = 1067) 3.12 K/UL 1.00-4.00 ABSOLUTE MONOCYTES (test code = 1068) 0.40 K/UL 0.20-1.00 ABSOLUTE EOSINOPHILS (test code = 1040) 0.07 K/UL 0.00-0.50 ABSOLUTE BASOPHILS (test code = 1069) 0.06 K/UL 0.00-0.20 ABS IMMATURE GRANULOCYTES (test code = 1020) 0.02 K/UL 0.00-0.10 ABS NUCLEATED RBCS (test code = 39725) 0.00 K/UL 0.00-0.11 C-REACTIVE [id number] 00:00:00* Test Item Value Reference Range Interpretation Comme nts C-REACTIVE PROTEIN (test cod e = 3513) 0.4 MG/DL Oseas MontgomerySEDIMENTATION [id number] 00:00:00* Test Item Value Reference Range Interpretation Comme nts SEDIMENTATION RATE (test cod e = 1017) 17 MM/HOUR Oseas MontgomeryCBC W/AUTO [id number] 00:00:00* Test Item Value Reference Range Interpretation Comme nts WBC (test code = 1001) 6.7 K/UL RBC (test code = 1002) 4.67 M/UL HEMOGLOBIN (test code = 1003) 14.3 G/DL HEMATOCRIT (test code = 1004) 42.2 % MCV (test code = 1005) 90.4 fL MCH (test code = 1006) 30.6 PG MCHC (test code = 1007) 33.9 G/DL RDW (test code = 1038) 12.6 % NEUTROPHILS (test code = 1008) 45.2 % LYMPHOCYTES (test code = 1010) 46.6 % MONOCYTES (test code = 1011) 6.0 % EOSINOPHILS (test code = 1012) 1.0 % BASOPHILS (test code = 1013) 0.9 % IMMATURE GRANULOCYTES (test code = 1036) 0.3 % NUCLEATED RBCS (test code = 1065) 0.0 /100WBC'S PLATELET COUNT (test code = 1015) 258 K/UL ABSOLUTE NEUTROPHILS (test c ode = 1066) 3.03 K/UL ABSOLUTE LYMPHOCYTES (test c ode = 1067) 3.12 K/UL ABSOLUTE MONOCYTES (test cod e = 1068) 0.40 K/UL ABSOLUTE EOSINOPHILS (test c ode = 1040) 0.07 K/UL ABSOLUTE BASOPHILS (test cod e = 1069) 0.06 K/UL ABS IMMATURE GRANULOCYTES (t est code = 1020) 0.02 K/UL ABS NUCLEATED RBCS (test cod e = 67374) 0.00 K/UL Oseas Gonsalves AustinC-REACTIVE [id number] 00:00:00* Test Item Value Reference Range Interpretation Comme nts C-REACTIVE PROTEIN (test cod e = 3513) 0.4 MG/DL Oseas Gonsalves AustinSEDIMENTATION [id number] 00:00:00* Test Item Value Reference Range Interpretation Comme nts SEDIMENTATION RATE (test cod e = 1017) 17 MM/HOUR Oseas Gonsalves AustinCBC W/AUTO [id number] 00:00:00* Test Item Value Reference Range Interpretation Comme nts WBC (test code = 1001) 6.7 K/UL RBC (test code = 1002) 4.67 M/UL HEMOGLOBIN (test code = 1003) 14.3 G/DL HEMATOCRIT (test code = 1004) 42.2 % MCV (test code = 1005) 90.4 fL MCH (test code = 1006) 30.6 PG MCHC (test code = 1007) 33.9 G/DL RDW (test code = 1038) 12.6 % NEUTROPHILS (test code = 1008) 45.2 % LYMPHOCYTES (test code = 1010) 46.6 % MONOCYTES (test code = 1011) 6.0 % EOSINOPHILS (test code = 1012) 1.0 % BASOPHILS (test code = 1013) 0.9 % IMMATURE GRANULOCYTES (test code = 1036) 0.3 % NUCLEATED RBCS (test code = 1065) 0.0 /100WBC'S PLATELET COUNT (test code = 1015) 258 K/UL ABSOLUTE NEUTROPHILS (test c ode = 1066) 3.03 K/UL ABSOLUTE LYMPHOCYTES (test c ode = 1067) 3.12 K/UL ABSOLUTE MONOCYTES (test cod e = 1068) 0.40 K/UL ABSOLUTE EOSINOPHILS (test c ode = 1040) 0.07 K/UL ABSOLUTE BASOPHILS (test cod e = 1069) 0.06 K/UL ABS IMMATURE GRANULOCYTES (t est code = 1020) 0.02 K/UL ABS NUCLEATED RBCS (test cod e = 50087) 0.00 K/UL Oseas Gonsalves UlisesC-REACTIVE [id number] 00:00:00* Test Item Value Reference Range Interpretation Comme nts C-REACTIVE PROTEIN (test cod e = 3513) 0.4 MG/DL Oseas Gonsalves UlisesSEDIMENTATION [id number] 00:00:00* Test Item Value Reference Range Interpretation Comme nts SEDIMENTATION RATE (test cod e = 1017) 17 MM/HOUR Oseas Gonsalves UlisesCBC W/AUTO [id number] 00:00:00* Test Item Value Reference Range Interpretation Comme nts WBC (test code = 1001) 6.7 K/UL RBC (test code = 1002) 4.67 M/UL HEMOGLOBIN (test code = 1003) 14.3 G/DL HEMATOCRIT (test code = 1004) 42.2 % MCV (test code = 1005) 90.4 fL MCH (test code = 1006) 30.6 PG MCHC (test code = 1007) 33.9 G/DL RDW (test code = 1038) 12.6 % NEUTROPHILS (test code = 1008) 45.2 % LYMPHOCYTES (test code = 1010) 46.6 % MONOCYTES (test code = 1011) 6.0 % EOSINOPHILS (test code = 1012) 1.0 % BASOPHILS (test code = 1013) 0.9 % IMMATURE GRANULOCYTES (test code = 1036) 0.3 % NUCLEATED RBCS (test code = 1065) 0.0 /100WBC'S PLATELET COUNT (test code = 1015) 258 K/UL ABSOLUTE NEUTROPHILS (test c ode = 1066) 3.03 K/UL ABSOLUTE LYMPHOCYTES (test c ode = 1067) 3.12 K/UL ABSOLUTE MONOCYTES (test cod e = 1068) 0.40 K/UL ABSOLUTE EOSINOPHILS (test c ode = 1040) 0.07 K/UL ABSOLUTE BASOPHILS (test cod e = 1069) 0.06 K/UL ABS IMMATURE GRANULOCYTES (t est code = 1020) 0.02 K/UL ABS NUCLEATED RBCS (test cod e = 93215) 0.00 K/UL Oseas Gonsalves AustinSEDIMENTATION [id number] 00:00:00* Test Item Value Reference Range Interpretation Comme nts SEDIMENTATION RATE (test cod e = 1017) 17 MM/HOUR CBC W/AUTO [id number] 00:00:00* Test Item Value Reference Range Interpretation Comme nts WBC (test code = 1001) 6.7 K/UL RBC (test code = 1002) 4.67 M/UL HEMOGLOBIN (test code = 1003) 14.3 G/DL HEMATOCRIT (test code = 1004) 42.2 % MCV (test code = 1005) 90.4 fL MCH (test code = 1006) 30.6 PG MCHC (test code = 1007) 33.9 G/DL RDW (test code = 1038) 12.6 % NEUTROPHILS (test code = 1008) 45.2 % LYMPHOCYTES (test code = 1010) 46.6 % MONOCYTES (test code = 1011) 6.0 % EOSINOPHILS (test code = 1012) 1.0 % BASOPHILS (test code = 1013) 0.9 % IMMATURE GRANULOCYTES (test code = 1036) 0.3 % NUCLEATED RBCS (test code = 1065) 0.0 /100WBC'S PLATELET COUNT (test code = 1015) 258 K/UL ABSOLUTE NEUTROPHILS (test c ode = 1066) 3.03 K/UL ABSOLUTE LYMPHOCYTES (test c ode = 1067) 3.12 K/UL ABSOLUTE MONOCYTES (test cod e = 1068) 0.40 K/UL ABSOLUTE EOSINOPHILS (test c ode = 1040) 0.07 K/UL ABSOLUTE BASOPHILS (test cod e = 1069) 0.06 K/UL ABS IMMATURE GRANULOCYTES (t est code = 1020) 0.02 K/UL ABS NUCLEATED RBCS (test cod e = 96379) 0.00 K/UL C-REACTIVE [id number] 00:00:00* Test Item Value Reference Range Interpretation Comme nts C-REACTIVE PROTEIN (test cod e = 3513) 0.4 MG/DL VAGINAL PATHOGENS DNA [id number] 00:00:00* Test Item Value Reference Range Interpretation Comme nts PILI SPECIES (test code = ) NEGATIVE G. VAGINALIS (test code = 65526) POSITIVE T. VAGINALIS (test code = 19746) NEGATIVE Oseas F AustinVAGINAL PATHOGENS DNA [id number] 00:00:00* Test Item Value Reference Range Interpretation Comme nts PILI SPECIES (test code = 81152) NEGATIVE G. VAGINALIS (test code = 20057) POSITIVE T. VAGINALIS (test code = 91852) NEGATIVE Oseas F AustinVAGINAL PATHOGENS DNA [id number] 00:00:00* Test Item Value Reference Range Interpretation Comme nts PILI SPECIES (test code = 76507) NEGATIVE G. VAGINALIS (test code = 31869) POSITIVE T. VAGINALIS (test code = 78928) NEGATIVE Oseas F AustinVAGINAL PATHOGENS DNA [id number] 00:00:00* Test Item Value Reference Range Interpretation Comme nts PILI SPECIES (test code = 87678) NEGATIVE G. VAGINALIS (test code = 08058) POSITIVE T. VAGINALIS (test code = 11474) NEGATIVE VAGINAL PATHOGENS DNA [id number] 00:00:00* Test Item Value Reference Range Interpretation Comme nts PILI SPECIES (test code = 03476) NEGATIVE G. VAGINALIS (test code = 56930) POSITIVE T. VAGINALIS (test code = 24345) NEGATIVE Oseas F AustinVAGINAL PATHOGENS DNA [id number] 00:00:00* Test Item Value Reference Range Interpretation Comme nts PILI SPECIES (test code = ) NEGATIVE G. VAGINALIS (test code = 73052) POSITIVE T. VAGINALIS (test code = 24307) NEGATIVE Oseas Gonsalves AustinVAGINAL PATHOGENS DNA [id number] 00:00:00* Test Item Value Reference Range Interpretation Comme nts PILI SPECIES (test code = ) NEGATIVE G. VAGINALIS (test code = 49530) POSITIVE T. VAGINALIS (test code = 49297) NEGATIVE Oseas Gonsalves AustinVAGINAL PATHOGENS DNA [id number] 00:00:00* Test Item Value Reference Range Interpretation Comme nts PILI SPECIES (test code = ) NEGATIVE G. VAGINALIS (test code = 14405) POSITIVE T. VAGINALIS (test code = 69189) NEGATIVE LIPID PANEL [ADDED]2017-10-31 00:00:00* Test Item Value Reference Range Interpretation Comme nts CHOLESTEROL (test code = 2210) 163 MG/DL TRIGLYCERIDES (test code = 2232) 69 MG/DL HDL CHOLESTEROL (test code = 2220) 49 MG/DL CALC LDL CHOL (test code = 2237) 100 MG/DL RISK RATIO LDL/HDL (test cod e = 2238) 2.04 RATIO Oseas MontgomeryCOMPREHENSIVE METABOLIC PANEL [ADDED]2017-10-31 00:00:00* Test Item Value Reference Range Interpretation Comme nts GLUCOSE (test code = 2217) 112 MG/DL BUN (test code = 2208) 11 MG/DL CREATININE (test code = 2214) 0.86 MG/DL eGFR AMER. (test cod e = 38667) 91 ML/MIN/1.73 eGFR NON- AMER. (test code = 98632) 79 ML/MIN/1.73 CALC BUN/CREAT (test code = 2235) 13 RATIO SODIUM (test code = 2231) 142 MEQ/L POTASSIUM (test code = 2228) 4.9 MEQ/L CHLORIDE (test code = 2215) 103 MEQ/L CARBON DIOXIDE (test code = 2206) 29 MEQ/L CALCIUM (test code = 2209) 9.6 MG/DL PROTEIN, TOTAL (test code = 2229) 8.1 G/DL ALBUMIN (test code = 2201) 4.3 G/DL CALC GLOBULIN (test code = 2240) 3.8 G/DL CALC A/G RATIO (test code = 2234) 1.1 RATIO BILIRUBIN, TOTAL (test code = 2207) 0.3 MG/DL ALKALINE PHOSPHATASE (test code = 2204) 56 U/L AST (test code = 2218) 45 U/L ALT (test code = 2219) 48 U/L Oseas MontgomeryTSH, THIRD GENERATION [ADDED]2017-10-31 00:00:00* Test Item Value Reference Range Interpretation Comme nts TSH, THIRD GENERATION (test code = 2821) 1.300 UIU/ML Oseas MontgomeryHEMOGLOBIN A1c [ADDED]2017-10-31 00:00:00* Test Item Value Reference Range Interpretation Comme tong HEMOGLOBIN A1c (test code = 11158) 5.4 % Oseas MontgomeryLIPID PANEL [ADDED]2017-10-31 00:00:00* Test Item Value Reference Range Interpretation Comme nts CHOLESTEROL (test code = 2210) 163 MG/DL TRIGLYCERIDES (test code = 2232) 69 MG/DL HDL CHOLESTEROL (test code = 2220) 49 MG/DL CALC LDL CHOL (test code = 2237) 100 MG/DL RISK RATIO LDL/HDL (test cod e = 2238) 2.04 RATIO Oseas MontgomeryCOMPREHENSIVE METABOLIC PANEL [ADDED]2017-10-31 00:00:00* Test Item Value Reference Range Interpretation Comme nts GLUCOSE (test code = 2217) 112 MG/DL BUN (test code = 2208) 11 MG/DL CREATININE (test code = 2214) 0.86 MG/DL eGFR AMER. (test cod e = 84696) 91 ML/MIN/1.73 eGFR NON- AMER. (test code = 08234) 79 ML/MIN/1.73 CALC BUN/CREAT (test code = 2235) 13 RATIO SODIUM (test code = 2231) 142 MEQ/L POTASSIUM (test code = 2228) 4.9 MEQ/L CHLORIDE (test code = 2215) 103 MEQ/L CARBON DIOXIDE (test code = 2206) 29 MEQ/L CALCIUM (test code = 2209) 9.6 MG/DL PROTEIN, TOTAL (test code = 2229) 8.1 G/DL ALBUMIN (test code = 2201) 4.3 G/DL CALC GLOBULIN (test code = 2240) 3.8 G/DL CALC A/G RATIO (test code = 2234) 1.1 RATIO BILIRUBIN, TOTAL (test code = 2207) 0.3 MG/DL ALKALINE PHOSPHATASE (test code = 2204) 56 U/L AST (test code = 2218) 45 U/L ALT (test code = 2219) 48 U/L Oseas MontgomeryTSH, THIRD GENERATION [ADDED]2017-10-31 00:00:00* Test Item Value Reference Range Interpretation Comme nts TSH, THIRD GENERATION (test code = 2821) 1.300 UIU/ML Oseas MontgomeryHEMOGLOBIN A1c [ADDED]2017-10-31 00:00:00* Test Item Value Reference Range Interpretation Comme tong HEMOGLOBIN A1c (test code = 34337) 5.4 % Oseas MontgomeryLIPID PANEL [ADDED]2017-10-31 00:00:00* Test Item Value Reference Range Interpretation Comme nts CHOLESTEROL (test code = 2210) 163 MG/DL TRIGLYCERIDES (test code = 2232) 69 MG/DL HDL CHOLESTEROL (test code = 2220) 49 MG/DL CALC LDL CHOL (test code = 2237) 100 MG/DL RISK RATIO LDL/HDL (test cod e = 2238) 2.04 RATIO Oseas MontgomeryCOMPREHENSIVE METABOLIC PANEL [ADDED]2017-10-31 00:00:00* Test Item Value Reference Range Interpretation Comme nts GLUCOSE (test code = 2217) 112 MG/DL BUN (test code = 2208) 11 MG/DL CREATININE (test code = 2214) 0.86 MG/DL eGFR AMER. (test cod e = 38311) 91 ML/MIN/1.73 eGFR NON- AMER. (test code = 79689) 79 ML/MIN/1.73 CALC BUN/CREAT (test code = 2235) 13 RATIO SODIUM (test code = 2231) 142 MEQ/L POTASSIUM (test code = 2228) 4.9 MEQ/L CHLORIDE (test code = 2215) 103 MEQ/L CARBON DIOXIDE (test code = 2206) 29 MEQ/L CALCIUM (test code = 2209) 9.6 MG/DL PROTEIN, TOTAL (test code = 2229) 8.1 G/DL ALBUMIN (test code = 2201) 4.3 G/DL CALC GLOBULIN (test code = 2240) 3.8 G/DL CALC A/G RATIO (test code = 2234) 1.1 RATIO BILIRUBIN, TOTAL (test code = 2207) 0.3 MG/DL ALKALINE PHOSPHATASE (test code = 2204) 56 U/L AST (test code = 2218) 45 U/L ALT (test code = 2219) 48 U/L Oseas MontgomeryTSH, THIRD GENERATION [ADDED]2017-10-31 00:00:00* Test Item Value Reference Range Interpretation Comme nts TSH, THIRD GENERATION (test code = 2821) 1.300 UIU/ML Oseas MontgomeryHEMOGLOBIN A1c [ADDED]2017-10-31 00:00:00* Test Item Value Reference Range Interpretation Comme nts HEMOGLOBIN A1c (test code = 59998) 5.4 % Oseas MontgomeryHEMOGLOBIN A1c [ADDED]2017-10-31 00:00:00* Test Item Value Reference Range Interpretation Comme nts HEMOGLOBIN A1c (test code = 31912) 5.4 % LIPID PANEL [ADDED]2017-10-31 00:00:00* Test Item Value Reference Range Interpretation Comme nts CHOLESTEROL (test code = 2210) 163 MG/DL TRIGLYCERIDES (test code = 2232) 69 MG/DL HDL CHOLESTEROL (test code = 2220) 49 MG/DL CALC LDL CHOL (test code = 2237) 100 MG/DL RISK RATIO LDL/HDL (test cod e = 2238) 2.04 RATIO COMPREHENSIVE METABOLIC PANEL [ADDED]2017-10-31 00:00:00* Test Item Value Reference Range Interpretation Comme nts GLUCOSE (test code = 2217) 112 MG/DL BUN (test code = 2208) 11 MG/DL CREATININE (test code = 2214) 0.86 MG/DL eGFR AMER. (test cod e = 09656) 91 ML/MIN/1.73 eGFR NON- AMER. (test code = 36560) 79 ML/MIN/1.73 CALC BUN/CREAT (test code = 2235) 13 RATIO SODIUM (test code = 2231) 142 MEQ/L POTASSIUM (test code = 2228) 4.9 MEQ/L CHLORIDE (test code = 2215) 103 MEQ/L CARBON DIOXIDE (test code = 2206) 29 MEQ/L CALCIUM (test code = 2209) 9.6 MG/DL PROTEIN, TOTAL (test code = 2229) 8.1 G/DL ALBUMIN (test code = 2201) 4.3 G/DL CALC GLOBULIN (test code = 2240) 3.8 G/DL CALC A/G RATIO (test code = 2234) 1.1 RATIO BILIRUBIN, TOTAL (test code = 2207) 0.3 MG/DL ALKALINE PHOSPHATASE (test code = 2204) 56 U/L AST (test code = 2218) 45 U/L ALT (test code = 2219) 48 U/L TSH, THIRD GENERATION [ADDED]2017-10-31 00:00:00* Test Item Value Reference Range Interpretation Comme nts TSH, THIRD GENERATION (test code = 2821) 1.300 UIU/ML CULTURE, [id number] 00:00:00* Test Item Value Reference Range Interpretation Comme nts CULTURE, URINE (test code = 14962) SPECIMEN NUMBER: [id number] Oseas Gonsalves AustinVAGINAL PATHOGENS DNA [id number] 00:00:00* Test Item Value Reference Range Interpretation Comme nts PILI SPECIES (test code = ) NEGATIVE G. VAGINALIS (test code = 88351) POSITIVE T. VAGINALIS (test code = 48446) POSITIVE Oseas MontgomeryCULTURE, [id number] 00:00:00* Test Item Value Reference Range Interpretation Comme nts CULTURE, URINE (test code = 97158) SPECIMEN NUMBER: [id number] Oseas MontgomeryVAGINAL PATHOGENS DNA [id number] 00:00:00* Test Item Value Reference Range Interpretation Comme nts PILI SPECIES (test code = ) NEGATIVE G. VAGINALIS (test code = 34184) POSITIVE T. VAGINALIS (test code = 14036) POSITIVE Oseas MontgomeryCULTURE, [id number] 00:00:00* Test Item Value Reference Range Interpretation Comme nts CULTURE, URINE (test code = 06204) SPECIMEN NUMBER: [id number] Oseas Gonsalves AustinVAGINAL PATHOGENS DNA [id number] 00:00:00* Test Item Value Reference Range Interpretation Comme nts PILI SPECIES (test code = ) NEGATIVE G. VAGINALIS (test code = 70892) POSITIVE T. VAGINALIS (test code = 54737) POSITIVE Oseas Gonsalves AustinVAGINAL PATHOGENS DNA [id number] 00:00:00* Test Item Value Reference Range Interpretation Comme nts PILI SPECIES (test code = 75461) NEGATIVE G. VAGINALIS (test code = 75404) POSITIVE T. VAGINALIS (test code = 98471) POSITIVE CULTURE, [id number] 00:00:00* Test Item Value Reference Range Interpretation Comme nts CULTURE, URINE (test code = 20418) SPECIMEN NUMBER: [id number] CHLAMYDIA, AMPLIFIED, [id number] 00:00:00* Test Item Value Reference Range Interpretation Comme nts CHLAMYDIA, TMA (test code = 69799) NEGATIVE Oseas F AustinGC, AMPLIFIED, [id number] 00:00:00* Test Item Value Reference Range Interpretation Comme nts GONORRHEA, TMA (test code = 34039) NEGATIVE Oseas F AustinCHLAMYDIA, AMPLIFIED, [id number] 00:00:00* Test Item Value Reference Range Interpretation Comme nts CHLAMYDIA, TMA (test code = 52761) NEGATIVE Oseas F AustinGC, AMPLIFIED, [id number] 00:00:00* Test Item Value Reference Range Interpretation Comme nts GONORRHEA, TMA (test code = 07661) NEGATIVE Oseas F AustinCHLAMYDIA, AMPLIFIED, [id number] 00:00:00* Test Item Value Reference Range Interpretation Comme nts CHLAMYDIA, TMA (test code = 19009) NEGATIVE Oseas F AustinGC, AMPLIFIED, [id number] 00:00:00* Test Item Value Reference Range Interpretation Comme nts GONORRHEA, TMA (test code = 74612) NEGATIVE Oseas F AustinCHLAMYDIA, AMPLIFIED, [id number] 00:00:00* Test Item Value Reference Range Interpretation Comme nts CHLAMYDIA, TMA (test code = 66386) NEGATIVE GC, AMPLIFIED, [id number] 00:00:00* Test Item Value Reference Range Interpretation Comme nts GONORRHEA, TMA (test code = 45439) NEGATIVE HCV RNA, PCR [id number] 00:00:00* Test Item Value Reference Range Interpretation Comme nts HCV RNA, PCR QUANT (test cod e = 4571) [id number] IU/ML HCV VIRAL LOG (test code = 22384) 7.207 LOGIU/ML Oseas F AustinVAGINAL PATHOGENS DNA [id number] 00:00:00* Test Item Value Reference Range Interpretation Comme nts PILI SPECIES (test code = 84061) NEGATIVE G. VAGINALIS (test code = 88027) POSITIVE T. VAGINALIS (test code = 24582) POSITIVE Oseas Gonsalves [id number] 00:00:00* Test Item Value Reference Range Interpretation Comme nts RPR RESULT (test code = 3501) NON-REACTIVE RPR TITER (test code = 3500) NOT INDIC. TITER Oseas Gonsalves AustinHIV AB/AG COMBO RFLX [id number] 00:00:00* Test Item Value Reference Range Interpretation Comme nts HIV 1/2 4TH GEN, RFLX CONF ( test code = 3514) NON-REACTIVE Oseas Gonsalves AustinHCV RNA, PCR [id number] 00:00:00* Test Item Value Reference Range Interpretation Comme nts HCV RNA, PCR QUANT (test cod e = 4571) [id number] IU/ML HCV VIRAL LOG (test code = 78203) 7.207 LOGIU/ML Oseas Gonsalves AustinVAGINAL PATHOGENS DNA [id number] 00:00:00* Test Item Value Reference Range Interpretation Comme nts PILI SPECIES (test code = 49001) NEGATIVE G. VAGINALIS (test code = 99807) POSITIVE T. VAGINALIS (test code = 26791) POSITIVE Oseas Gonsalves [id number] 00:00:00* Test Item Value Reference Range Interpretation Comme nts RPR RESULT (test code = 3501) NON-REACTIVE RPR TITER (test code = 3500) NOT INDIC. TITER Oseas Gonsalves AustinHIV AB/AG COMBO RFLX [id number] 00:00:00* Test Item Value Reference Range Interpretation Comme nts HIV 1/2 4TH GEN, RFLX CONF ( test code = 3514) NON-REACTIVE Oseas Gonsalves AustinHCV RNA, PCR [id number] 00:00:00* Test Item Value Reference Range Interpretation Comme nts HCV RNA, PCR QUANT (test cod e = 4571) [id number] IU/ML HCV VIRAL LOG (test code = 74024) 7.207 LOGIU/ML Oseas Gonsalves AustinVAGINAL PATHOGENS DNA [id number] 00:00:00* Test Item Value Reference Range Interpretation Comme nts PILI SPECIES (test code = 65221) NEGATIVE G. VAGINALIS (test code = 30962) POSITIVE T. VAGINALIS (test code = 61774) POSITIVE Oseas Gonsalves [id number] 00:00:00* Test Item Value Reference Range Interpretation Comme nts RPR RESULT (test code = 3501) NON-REACTIVE RPR TITER (test code = 3500) NOT INDIC. TITER Oseas MontgomeryHIV AB/AG COMBO RFLX [id number] 00:00:00* Test Item Value Reference Range Interpretation Comme nts HIV 1/2 4TH GEN, RFLX CONF ( test code = 3514) NON-REACTIVE Oseas Gonsalves AustinHCV RNA, PCR [id number] 00:00:00* Test Item Value Reference Range Interpretation Comme nts HCV RNA, PCR QUANT (test cod e = 4571) [id number] IU/ML HCV VIRAL LOG (test code = 87590) 7.207 LOGIU/ML VAGINAL PATHOGENS DNA [id number] 00:00:00* Test Item Value Reference Range Interpretation Comme nts PILI SPECIES (test code = 60490) NEGATIVE G. VAGINALIS (test code = 97258) POSITIVE T. VAGINALIS (test code = 27943) POSITIVE [id number] 00:00:00* Test Item Value Reference Range Interpretation Comme nts RPR RESULT (test code = 3501) NON-REACTIVE RPR TITER (test code = 3500) NOT INDIC. TITER HIV AB/AG COMBO RFLX [id number] 00:00:00* Test Item Value Reference Range Interpretation Comme nts HIV 1/2 4TH GEN, RFLX CONF ( test code = 3514) NON-REACTIVE GC, AMPLIFIED, [id number] 00:00:00* Test Item Value Reference Range Interpretation Comme nts GONORRHEA, TMA (test code = 33582) NEGATIVE Oseas Gonsalves AustinCHLAMYDIA, AMPLIFIED, [id number] 00:00:00* Test Item Value Reference Range Interpretation Comme nts CHLAMYDIA, TMA (test code = 48129) NEGATIVE Oseas Gonsalves AustinGC, AMPLIFIED, [id number] 00:00:00* Test Item Value Reference Range Interpretation Comme nts GONORRHEA, TMA (test code = 19980) NEGATIVE Oseas MontgomeryCHLAMYDIA, AMPLIFIED, [id number] 00:00:00* Test Item Value Reference Range Interpretation Comme nts CHLAMYDIA, TMA (test code = 09098) NEGATIVE Oseas MontgomeryGC, AMPLIFIED, [id number] 00:00:00* Test Item Value Reference Range Interpretation Comme nts GONORRHEA, TMA (test code = 62866) NEGATIVE Oseas Gonsalves AustinCHLAMYDIA, AMPLIFIED, [id number] 00:00:00* Test Item Value Reference Range Interpretation Comme nts CHLAMYDIA, TMA (test code = 29383) NEGATIVE Oseas MontgomeryGC, AMPLIFIED, [id number] 00:00:00* Test Item Value Reference Range Interpretation Comme nts GONORRHEA, TMA (test code = 56550) NEGATIVE CHLAMYDIA, AMPLIFIED, [id number] 00:00:00* Test Item Value Reference Range Interpretation Comme nts CHLAMYDIA, TMA (test code = 53412) NEGATIVE HIV AB/AG COMBO RFLX [id number] 00:00:00* Test Item Value Reference Range Interpretation Comme nts HIV 1/2 4TH GEN, RFLX CONF ( test code = 3514) NON-REACTIVE Oseas [id number] 00:00:00* Test Item Value Reference Range Interpretation Comme nts RPR RESULT (test code = 3501) NON-REACTIVE RPR TITER (test code = 3500) NOT INDIC. TITER Oseas MontgomeryVAGINAL PATHOGENS DNA [id number] 00:00:00* Test Item Value Reference Range Interpretation Comme nts PILI SPECIES (test code = 12790) NEGATIVE G. VAGINALIS (test code = 55460) POSITIVE T. VAGINALIS (test code = 53381) POSITIVE Oseas MontgomeryACUTE HEPATITIS [id number] 00:00:00* Test Item Value Reference Range Interpretation Comme nts HEPATITIS A IgM (test code = 68596) NON-REACTIVE HEPATITIS B CORE IgM (test c ode = 4644) NON-REACTIVE HEPATITIS B SURF AG (test co de = 3309) NON-REACTIVE HEPATITIS C ANTIBODY (test c ode = 4638) REACTIVE INTERPRETATION HEPATITIS A: (test code = 2552) (NOTE) INTERPRETATION HEPATITIS B: (test code = 34862) (NOTE) INTERPRETATION HEPATITIS C: (test code = 41820) (NOTE) Oseas Gonsalves AustinHIV AB/AG COMBO RFLX [id number] 00:00:00* Test Item Value Reference Range Interpretation Comme nts HIV 1/2 4TH GEN, RFLX CONF ( test code = 3514) NON-REACTIVE Oseas Gonsalves [id number] 00:00:00* Test Item Value Reference Range Interpretation Comme nts RPR RESULT (test code = 3501) NON-REACTIVE RPR TITER (test code = 3500) NOT INDIC. TITER Oseas Gonsalves AustinVAGINAL PATHOGENS DNA [id number] 00:00:00* Test Item Value Reference Range Interpretation Comme nts PILI SPECIES (test code = ) NEGATIVE G. VAGINALIS (test code = 43185) POSITIVE T. VAGINALIS (test code = 68712) POSITIVE Oseas MontgomeryACUTE HEPATITIS [id number] 00:00:00* Test Item Value Reference Range Interpretation Comme nts HEPATITIS A IgM (test code = 77163) NON-REACTIVE HEPATITIS B CORE IgM (test c ode = 4644) NON-REACTIVE HEPATITIS B SURF AG (test co de = 2739) NON-REACTIVE HEPATITIS C ANTIBODY (test c ode = 4675) REACTIVE INTERPRETATION HEPATITIS A: (test code = 2552) (NOTE) INTERPRETATION HEPATITIS B: (test code = 34315) (NOTE) INTERPRETATION HEPATITIS C: (test code = 05814) (NOTE) Oseas MontgomeryHIV AB/AG COMBO RFLX [id number] 00:00:00* Test Item Value Reference Range Interpretation Comme nts HIV 1/2 4TH GEN, RFLX CONF ( test code = 3514) NON-REACTIVE Oseas Gonsalves [id number] 00:00:00* Test Item Value Reference Range Interpretation Comme nts RPR RESULT (test code = 3501) NON-REACTIVE RPR TITER (test code = 3500) NOT INDIC. TITER Oseas Gonsalves AustinVAGINAL PATHOGENS DNA [id number] 00:00:00* Test Item Value Reference Range Interpretation Comme nts PILI SPECIES (test code = ) NEGATIVE G. VAGINALIS (test code = 86117) POSITIVE T. VAGINALIS (test code = 81619) POSITIVE Oseas MontgomeryACUTE HEPATITIS [id number] 00:00:00* Test Item Value Reference Range Interpretation Comme nts HEPATITIS A IgM (test code = 81427) NON-REACTIVE HEPATITIS B CORE IgM (test c ode = 4644) NON-REACTIVE HEPATITIS B SURF AG (test co de = 2739) NON-REACTIVE HEPATITIS C ANTIBODY (test c ode = 4675) REACTIVE INTERPRETATION HEPATITIS A: (test code = 2552) (NOTE) INTERPRETATION HEPATITIS B: (test code = 17301) (NOTE) INTERPRETATION HEPATITIS C: (test code = 06728) (NOTE) [facility] [id number] 00:00:00* Test Item Value Reference Range Interpretation Comme nts HEPATITIS A IgM (test code = 22477) NON-REACTIVE HEPATITIS B CORE IgM (test c ode = 4644) NON-REACTIVE HEPATITIS B SURF AG (test co de = 2739) NON-REACTIVE HEPATITIS C ANTIBODY (test c ode = 4675) REACTIVE INTERPRETATION HEPATITIS A: (test code = 2552) (NOTE) INTERPRETATION HEPATITIS B: (test code = 22903) (NOTE) INTERPRETATION HEPATITIS C: (test code = 94017) (NOTE) HIV AB/AG COMBO RFLX [id number] 00:00:00* Test Item Value Reference Range Interpretation Comme nts HIV 1/2 4TH GEN, RFLX CONF ( test code = 3514) NON-REACTIVE [id number] 00:00:00* Test Item Value Reference Range Interpretation Comme nts RPR RESULT (test code = 3501) NON-REACTIVE RPR TITER (test code = 3500) NOT INDIC. TITER VAGINAL PATHOGENS DNA [id number] 00:00:00* Test Item Value Reference Range Interpretation Comme nts PILI SPECIES (test code = 76589) NEGATIVE G. VAGINALIS (test code = 05243) POSITIVE T. VAGINALIS (test code = 76037) POSITIVE Notes Date/Time Note Provider Source [facility]00 [facility]
--- NOTE | 2024-06-01 16:31 | RAD REPORT ---
EXAM:Extremity Venous Uni Ltd HISTORY: Left leg pain TECHNIQUE: Sonographic evaluation left lower extremity performed.Grayscale, color and spectral analys is performed on all vessels COMPARISON: None. FINDINGS: Left common femoral, superficial femoral, greater saphenous, popliteal and posterior tibial veins are compressible and demonstrate augmentation. Doppler demonstrates good flow. IMPRESSION: No evidence of deep venous thrombosis involving the left lower extremity.
--- NOTE | 2024-06-01 18:39 | EDPHYS ---
Physician Documentation [facility] Name: Tammie Schofield Age: 58 yrs Sex: Female : 1965 Arrival Date: 06/01/2024 Time: 14:47 Bed IW8 Private MD: ED Physician Matthew Bruno HPI: 06/01 20:05 This 58 yrs old Female presents to ER via Wheelchair with complaints of Leg Pain. kb 20:05 Patient is a 58-year-old female who presents for pain to left leg that has been ongoing kb for years but has become worse over the last 4 months. States he went to a bone doctor 2 months ago but they said they could not do anything without x-rays and did not order any. Patient states she thinks she has an infection deep inside of her leg that is causing the pain because she has been getting sores every so often. Denies fever.. Historical: - Allergies: 15:25 NKDA; ap3 - Home Meds: 15:25 None [Active]; ap3 - PMHx: 15:25 Schizophrenia; ap3 - Immunization history:: Client reports receiving the 2nd dose of the Covid vaccine, Flu vaccine is not up to date. - Infectious Disease History:: Denies. - Social history:: Smoking status: Patient reports use of chewing tobacco. Patient uses alcohol, occasionally. ROS: 20:06 Constitutional: As per HPI kb Exam: 20:06 Constitutional: This is a well developed, well nourished patient who is awake, alert, kb and in no acute distress. Head/Face: Normocephalic, atraumatic. ENT: Moist Mucous membranes Cardiovascular: Regular rate Respiratory: Respirations even and unlabored. No increased work of breathing. Talking in full sentences Skin: Warm, dry with normal turgor. Normal color. Neuro: Awake and alert, GCS 15, oriented to person, place, time, and situation. 20:06 Musculoskeletal/extremity: Extremities: grossly normal except: noted in the lateral aspect of left thigh and lateral aspect of left calf: pain, tenderness, ROM: intact in all extremities, Circulation is intact in all extremities. Sensation intact. Weight bearing: able to fully bear weight, Vital Signs: 15:22 BP 156 / 91; Pulse 91; Resp 17; Temp 98.8(O); Pulse Ox 97% ; Weight 136.08 kg; Height 5 ap3 ft. 4 in. ; Pain 9/10; 15:22 Body Mass Index 51.49 (136.08 kg, 162.56 cm) ap3 15:22 Pain Scale: Adult ap3 MDM: 14:53 Medical Screening Exam initiated kb 20:06 Differential diagnosis: tendonitis, Arthritis, DVT, muscle strain. Data reviewed: vital kb signs, nurses notes. Counseling: I had a detailed discussion with the patient and/or guardian regarding the historical points, exam findings, and any diagnostic results supporting the discharge/admit diagnosis, radiology results, the need for outpatient follow up, a family practitioner, to return to the emergency department if symptoms worsen or persist or if there are any questions or concerns that arise at home. ED course: Patient elected to leave prior to discussion of results.. 06/01 15:25 Order name: US Extremity Venous Unilateral Ltd; Complete Time: 16:39 kb Administered Medications: No medications were administered Disposition: 06/02 14:37 Co-signature as Attending Physician, Matthew Bruno MD I agree with the assessment and flor plan of care. Disposition Summary: 06/01/24 18:38 Discharge Ordered Notes: Location: Home kb Condition: Stable kb Diagnosis - Pain in left leg kb Followup: kb - With: Emergency Department - When: As needed - Reason: Worsening of condition Followup: kb - With: Private Physician - When: 2 - 3 days - Reason: Recheck today's complaints, Continuance of care, Re-evaluation by your physician Discharge Instructions: - Discharge Summary Sheet kb - Musculoskeletal Pain kb Forms: - Medication Reconciliation Form kb - Antibiotic Education kb - Prescription Opioid Use kb - Patient Portal Instructions kb - Leadership Thank You Letter kb Signatures: Dispatcher [employer] Nuvia Leon, ICU TECH-C ICU TECH-Matthew Lai MD MD cha Prokisch, Amanda, RN RN ap3
--- NOTE | 2024-06-01 18:39 | ER ---
[facility] Name: Tammie Schofield Age: 58 yrs Sex: Female : 1965 Arrival Date: 06/01/2024 Time: 14:47 Bed IW8 Private MD: Diagnosis: Pain in left leg Presentation: 06/01 15:22 Chief complaint: Patient states: she has been having leg pain for several years, ap3 however the pain has gotten worse over the last 4 months. patient is currently having pain in her left leg that she rates a 9/10 on the pain scale. Coronavirus screen: At this time, the client does not indicate any symptoms associated with coronavirus-19. Ebola Screen: No symptoms or risks identified at this time. Initial Sepsis Screen: Does the patient meet any 2 criteria? HR > 90 bpm. Does the patient have a suspected source of infection? No. Patient's initial sepsis screen is negative. Risk Assessment: Do you want to hurt yourself or someone else? Patient reports no desire to harm self or others. Onset of symptoms is unknown. 15:22 Method Of Arrival: Wheelchair ap3 15:22 Acuity: YUDY 3 ap3 Triage Assessment: 15:26 General: Appears in no apparent distress. Behavior is calm, cooperative, appropriate ap3 for age. Pain: Complains of pain in left leg. Neuro: Level of Consciousness is awake, alert, obeys commands, Oriented to person, place, time, situation, Appropriate for age. Cardiovascular: Patient's skin is warm and dry. Respiratory: Airway is patent Respiratory effort is even, unlabored, Respiratory pattern is regular, symmetrical. Historical: - Allergies: 15:25 NKDA; ap3 - Home Meds: 15:25 None [Active]; ap3 - PMHx: 15:25 Schizophrenia; ap3 - Immunization history:: Client reports receiving the 2nd dose of the Covid vaccine, Flu vaccine is not up to date. - Infectious Disease History:: Denies. - Social history:: Smoking status: Patient reports use of chewing tobacco. Patient uses alcohol, occasionally. Screenin:26 Abuse screen: Denies threats or abuse. Nutritional screening: No deficits noted. ap3 Tuberculosis screening: No symptoms or risk factors identified. Assessment: 18:51 Reassessment: patient left prior to nurses discharge. ap3 Vital Signs: 15:22 BP 156 / 91; Pulse 91; Resp 17; Temp 98.8(O); Pulse Ox 97% ; Weight 136.08 kg; Height 5 ap3 ft. 4 in. ; Pain 9/10; 15:22 Body Mass Index 51.49 (136.08 kg, 162.56 cm) ap3 15:22 Pain Scale: Adult ap3 ED Course: 14:50 Patient arrived in ED. al6 14:53 Nuvia Schofield FNP-C is [facility]. kb 14:53 Matthew Bruno MD is Attending Physician. kb 15:25 Triage completed. ap3 15:26 Arm band placed on right wrist. ap3 15:26 Patient has correct armband on for positive identification. Adult w/ patient. ap3 15:26 Patient did not have IV access during this emergency room visit. ap3 16:24 US Extremity Venous Unilateral Ltd In Process Unspecified. EDMS Administered Medications: No medications were administered Outcome: 18:38 Discharge ordered by . kb 18:51 Patient left the ED. ap3 Signatures: Dispatcher [employer] EDMS Nuvia Schofield FNP-C FNP-Ckb Prokisch, Amanda RN RN ap3 Hoa Jacob al6 Corrections: (The following items were deleted from the chart) 18:30 18:29 Reassessment: unable to locate in [facility].. ap3 ap3
[2024-06-01 19:58] VITALS: BP 156/91; TEMP 98.8; O2SAT 97
== END 2024-06-01 18:51 | disposition home or self-care (01) ==
LOC: ER 14:47
DX: M79.605 Pain in left leg (principal); F17.220 Nicotine dependence, chewing tobacco, uncomplicated
CPT/HCPCS: 93971; 99281